=== PATIENT | female | born 1945 | race Caucasian/White ===

== ENCOUNTER 2020-11-19 17:21 | Inpatient (IN) | payer OTHER ==
[2020-11-19 18:55] LABS: Absolute Lymphocytes (CBC) 1.2 K/uL (0.7-4.9); Basophils % 0.7 % (0-1.3); Hematocrit 38.4 % (36.0-45.0); Lymphocytes % 23.3 % (15.3-44.8); MPV 8.7 fL (7.6-11.3); RBC Red Blood Cell Count 4.48 M/uL (3.86-4.86)
[2020-11-19] MEDS ORDERED: METHYLPREDNISOLONE 125 MG INJ ONE (19:04)
[2020-11-19 19:05] LABS: Protime INR 1.11
[2020-11-19] MEDS ORDERED: ALBUTEROL INHALER 60 PUFF/8 GM IH ONE (19:05)
--- NOTE | 2020-11-19 19:08 | RAD REPORT ---
EXAM DESCRIPTION: RAD - Chest Single View - 11/19/2020 6:26 pm CLINICAL HISTORY: SOB, COVID positive COMPARISON: None TECHNIQUE: AP portable chest image was obtained 11/19/2020 6:26 pm . FINDINGS: Lung volumes are low. Interstitial opacification is present most of which is low lung volu me affects. Patchy airspace opacification present in the mid and lower lung tabor bilaterally. Heart and vasculature are normal. No measurable pleural effusion and no pneumothorax. No acute bony abnorm ality seen. No acute aortic findings suspected. IMPRESSION: Mild bilateral COVID-19 pneumonia.
[2020-11-19 19:17] LABS: ALT/SGPT 43 U/L (12-78); AST/SGOT 56 U/L (15-37); Albumin 3.5 g/dL (3.4-5.0); Alkaline Phosphatase 64 U/L (45-117); BUN Blood Urea Nitrogen 11 mg/dL (7-18); Bicarbonate 26 mmol/L (21-32); Bilirubin Direct 0.2 mg/dL (0-0.2); Bilirubin Total 0.6 mg/dL (0.2-1.0); Ferritin 298.2 ng/mL (8-388); Glucose Level 142 mg/dL (74-106); Lipase 291 U/L (73-393); Potassium 3.8 mmol/L (3.5-5.1); Protein, Total 7.4 g/dL (6.4-8.2); Sodium Level 135 mmol/L (136-145); Troponin (Emerg Dept Use Only) < 0.02 ng/mL (0.0-0.045)
[2020-11-19 19:27] LABS: SARS-COV-2 RT PCR POSITIVE (NEGATIVE)
--- NOTE | 2020-11-19 19:51 | EDPHYS ---
Physician Documentation [facility] Name: Glenis Clark Age: 75 yrs Sex: Female : 1945 Arrival Date: 11/19/2020 Time: 17:22 Bed 7 Private MD: Srinivasa Reyes C ED Physician Franklin Espinosa HPI: 11/19 18:06 This 75 yrs old Female presents to ER via Ambulatory with complaints of pm1 Breathing Difficulty, COVID+. 18:06 The patient has shortness of breath at rest. pm1 18:06 Onset: The symptoms/episode began/occurred 8 day(s) ago. Duration: The symptoms are pm1 continuous, and are steadily getting worse. The patient's shortness of breath is aggravated by nothing, is alleviated by nothing. Associated signs and symptoms: Pertinent positives: productive cough, fever, Bodyaches, Pertinent negatives: vomiting, Diarrhea. Severity of symptoms: in the emergency department the symptoms are worse SOB of breath worse the past few day. The patient has not experienced similar symptoms in the past. The patient has not recently seen a physician, has not been tested for covid, exposure to friend who tested positive. Historical: - Allergies: 17:31 No Known Allergies; ca1 - PMHx: 17:31 Diabetes - NIDDM; Hypertension; High Cholesterol; ca1 - PSHx: 17:31 None; ca1 - Immunization history:: Pneumococcal vaccine is not up to date, Flu vaccine is not up to date. - Social history:: Smoking status: Patient denies any tobacco usage or history of. ROS: 18:06 Constitutional: Negative for fever, chills, and weight loss. pm1 18:06 Neck: Negative for injury, pain, and swelling, Cardiovascular: Negative for chest pain, pm1 palpitations, and edema. 18:06 Abdomen/GI: Negative for abdominal pain, nausea, vomiting, diarrhea, and constipation, Back: Negative for injury and pain, MS/Extremity: Negative for injury and deformity, Skin: Negative for injury, rash, and discoloration. 18:06 Neuro: Negative for headache, weakness, numbness, tingling, and seizure. 18:06 Respiratory: Positive for cough, dyspnea on exertion, shortness of breath. Exam: 18:06 Constitutional: This is a well developed, well nourished patient who is awake, alert, pm1 and in no acute distress. Head/Face: Normocephalic, atraumatic. Chest/axilla: Normal chest wall appearance and motion. Nontender with no deformity. No lesions are appreciated. 18:06 Back: No spinal tenderness. No costovertebral tenderness. Full range of motion. Skin: Warm, dry with normal turgor. Normal color with no rashes, no lesions, and no evidence of cellulitis. MS/ Extremity: Pulses equal, no cyanosis. Neurovascular intact. Full, normal range of motion. 18:06 Cardiovascular: Exam negative for acute changes, Rate: normal, Rhythm: regular, Pulses: no pulse deficits are appreciated. 18:06 Respiratory: the patient does not display signs of respiratory distress, Respirations: tachypnea, that is mild, Breath sounds: decreased breath sounds, are located in both bases. 18:06 Abdomen/GI: Exam negative for acute changes, Inspection: abdomen appears normal, Palpation: abdomen is soft and non-tender, in all quadrants. 18:06 Neuro: Exam negative for acute changes, Orientation: is normal, Mentation: is normal, Motor: is normal, moves all fours. Vital Signs: 17:26 BP 137 / 67; Pulse 82; Resp 22; Temp 97.6(TE); Pulse Ox 88% on R/A; Weight 78.47 kg; ca1 Height 5 ft. 9 in. (175.26 cm) (R); Pain 0/10; 17:31 Pulse Ox 90% on R/A; ca1 18:00 Pulse 78; Resp 24; Pulse Ox 94% on 2 lpm NC; jl7 19:00 BP 131 / 69; Pulse 82; Resp 22; Pulse Ox 98% on 2 lpm NC; rr5 19:49 BP 130 / 64; Pulse 84; Resp 17; Pulse Ox 94% on 2 lpm NC; jl7 21:00 BP 133 / 75; Pulse 80; Resp 20; Pulse Ox 98% on 2 lpm NC; rr5 17:26 Body Mass Index 25.55 (78.47 kg, 175.26 cm) ca1 MDM: 18:01 Patient medically screened. pm1 19:47 Data reviewed: vital signs. pm1 19:47 Data interpreted: Pulse oximetry: on 2L(s) per nasal canula, is 95 %. Interpretation: pm1 acceptable. 19:47 Counseling: I had a detailed discussion with the patient and/or guardian regarding: the pm1 historical points, exam findings, and any diagnostic results supporting the discharge/admit diagnosis, lab results, radiology results, the need for further work-up and treatment in the hospital. 11/19 18:01 Order name: Blood Culture Adult (2) pm11/19 18:01 Order name: BMP; Complete Time: 19:21 pm11/19 18:01 Order name: C-Reactive Protein; Complete Time: 19:21 pm11/19 18:01 Order name: CBC with Diff; Complete Time: 19:08 pm11/19 18:01 Order name: D-Dimer; Complete Time: 19:21 pm11/19 18:01 Order name: Ferritin; Complete Time: 19:21 pm11/19 18:01 Order name: Lactate; Complete Time: 19:21 pm11/19 18:01 Order name: LFT's; Complete Time: 19:21 pm11/19 18:01 Order name: Lipase; Complete Time: 19:21 pm11/19 18:01 Order name: Procalcitonin; Complete Time: 19:35 pm11/19 18:01 Order name: PT-INR; Complete Time: 19:21 pm11/19 18:01 Order name: Ptt, Activated; Complete Time: 19:21 pm11/19 18:01 Order name: Strep; Complete Time: 19:08 pm11/19 18:01 Order name: Troponin (emerg Dept Use Only); Complete Time: 19:21 pm11/19 18:01 Order name: CXR XRAY; Complete Time: 19:11 11/19 18:01 Order name: EKG; Complete Time: 18:03 pm11/19 18:01 Order name: Cardiac monitoring; Complete Time: 19:26 pm11/19 18:01 Order name: Droplet/Contact Precautions; Complete Time: 19:26 pm11/19 18:01 Order name: EKG - Nurse/Tech; Complete Time: 19:54 pm11/19 18:01 Order name: IV Start; Complete Time: 19:26 pm11/19 18:01 Order name: Labs collected and sent; Complete Time: 19:26 pm11/19 18:01 Order name: O2 Per Protocol; Complete Time: 19:26 pm1 11/19 18:02 Order name: Blood Culture EDMO 11/19 18:56 Order name: Throat Culture [facility] 11/19 19:28 Order name: COVID-19/FLU A+B; Complete Time: 19:35 EDMO 11/19 18:01 Order name: O2 Sat Monitoring; Complete Time: 18:48 pm1 Administered Medications: 18:50 Drug: SOLU-Medrol 125 mg Route: IVP; Site: right antecubital; rr5 19:50 Follow up: Response: No adverse reaction rr5 19:27 Not Given (Physician Discretion): Albuterol 5 mg Inhalation once pm1 19:30 Drug: Albuterol HFA Inhaler 2 puffs Route: Inhalation; rr5 20:30 Follow up: Response: No adverse reaction rr5 Disposition: 11/20 07:07 Co-signature as Attending Physician, Franklin Espinosa MD. rn Disposition: 11/19/20 19:50 Hospitalization ordered by Aidan Guardado for Inpatient Admission. Preliminary diagnosis are Pneumonia due to SARS-associated coronavirus, Hypoxia. - Bed requested for Telemetry/MedSurg (Inpatient). - Status is Inpatient Admission. rr5 - Condition is Stable. - Problem is new. - Symptoms have improved. Signatures: Dispatcher [employer] [facility] Franklin Espinosa MD MD rn Noel Palm, [employer]-C [employer]ERS-Cla1 Rosa Lester RN RN cg Tio Oliva, JEWELRY CASTING MODEL MAKER APPRENTICE JEWELRY CASTING MODEL MAKER APPRENTICE pm1 Vikram Koch, RN RN rr5 Irene Panchal RN RN ca1 Corrections: (The following items were deleted from the chart) 11/19 18:41 18:02 CORONAVIRUS+MR.LAB.BRZ ordered. EDMO EDMS 18:41 18:02 Influenza Screen (A \T\ B)+BA.LAB.BRZ ordered. [facility] EDMO 20:29 19:50 Hospitalization Ordered by Aidan Guardado MD for Inpatient Admission. cg Preliminary diagnosis is Pneumonia due to SARS-associated coronavirus; Hypoxia. Bed requested for Telemetry/MedSurg (Inpatient). Status is Inpatient Admission. Condition is Stable. Problem is new. Symptoms have improved. pm1 21:03 20:29 11/19/2020 19:50 Hospitalization Ordered by Aidan Guardado MD for Inpatient rr5 Admission. Preliminary diagnosis is Pneumonia due to SARS-associated coronavirus; Hypoxia. Bed requested for Telemetry/MedSurg (Inpatient). Status is Inpatient Admission. Condition is Stable. Problem is new. Symptoms have improved. cg
--- NOTE | 2020-11-19 19:51 | ER ---
Nurse's Notes [facility] Name: Glenis Clark Age: 75 yrs Sex: Female : 1945 Arrival Date: 11/19/2020 Time: 17:22 Bed 7 Private MD: Srinivasa Reyes C Diagnosis: Pneumonia due to SARS-associated coronavirus;Hypoxia Presentation: 11/19 17:26 Chief complaint: Patient states: Was never tested for Covid, but was exposed to 2 ca1 Friday ago. S/S started Friday11/11/2020. Reports cough, fever, fatigue, loss of appetite, muscle aches. O2 sat 84-85% for the past few days. SOB for the past few days and is getting worse. Coronavirus screen: Client denies travel out of the [place] in the last 14 days. congestion, cough unrelated to allergies, fatigue, fever, muscle pain, shortness of breath, Client presents with at least one sign or symptom that may indicate coronavirus-19. Standard/surgical mask placed on the client. Provider contacted for isolation considerations. Ebola Screen: Patient negative for fever greater than or equal to 101.5 degrees Fahrenheit, and additional compatible Ebola Virus Disease symptoms Patient denies exposure to infectious person. Patient denies travel to an Ebola-affected area in the 21 days before illness onset. No symptoms or risks identified at this time. Initial Sepsis Screen: Does the patient meet any 2 criteria? No. Patient's initial sepsis screen is negative. Does the patient have a suspected source of infection? No. Patient's initial sepsis screen is negative. Risk Assessment: Do you want to hurt yourself or someone else? Patient reports no desire to harm self or others. Onset of symptoms was November 19, 2020. 17:26 Method Of Arrival: Ambulatory ca1 17:26 Acuity: LAURY 2 ca1 Historical: - Allergies: 17:31 No Known Allergies; ca1 - PMHx: 17:31 Diabetes - NIDDM; Hypertension; High Cholesterol; ca1 - PSHx: 17:31 None; ca1 - Immunization history:: Pneumococcal vaccine is not up to date, Flu vaccine is not up to date. - Social history:: Smoking status: Patient denies any tobacco usage or history of. Screenin:00 Abuse screen: Denies threats or abuse. Denies injuries from another. Nutritional jl7 screening: No deficits noted. Tuberculosis screening: No symptoms or risk factors identified. Fall Risk IV access (20 points). Mental Status- Oriented to own ability (0 pts). Assessment: 18:00 General: Appears in no apparent distress. uncomfortable, Behavior is cooperative, jl7 anxious. Pain: Denies pain. Neuro: Level of Consciousness is awake, alert, obeys commands, Oriented to person, place, time, situation. Cardiovascular: Patient's skin is warm and dry. Rhythm is regular. Respiratory: Airway is patent Respiratory effort is even, unlabored, Respiratory pattern is symmetrical, tachypnea. Derm: Skin is pink, warm \T\ dry. 19:30 General: Appears in no apparent distress. comfortable, Behavior is calm, cooperative. rr5 Neuro: Level of Consciousness is awake, alert, obeys commands, Oriented to person, place, time. Cardiovascular: Capillary refill < 3 seconds Patient's skin is warm and dry. Respiratory: Reports shortness of breath Airway is patent Respiratory effort is even, unlabored, Respiratory pattern is regular, symmetrical. GI: No signs and/or symptoms were reported involving the gastrointestinal system. : No signs and/or symptoms were reported regarding the genitourinary system. Derm: Skin temperature is warm. Musculoskeletal: Capillary refill < 3 seconds. 20:00 Reassessment: Patient appears in no apparent distress at this time. Patient is alert, rr5 oriented x 3, equal unlabored respirations, skin warm/dry/pink. hospitalist at bedside. 21:00 Reassessment: Patient appears in no apparent distress at this time. Patient is alert, rr5 oriented x 3, equal unlabored respirations, skin warm/dry/pink. Vital Signs: 17:26 BP 137 / 67; Pulse 82; Resp 22; Temp 97.6(TE); Pulse Ox 88% on R/A; Weight 78.47 kg; ca1 Height 5 ft. 9 in. (175.26 cm) (R); Pain 0/10; 17:31 Pulse Ox 90% on R/A; ca1 18:00 Pulse 78; Resp 24; Pulse Ox 94% on 2 lpm NC; jl7 19:00 BP 131 / 69; Pulse 82; Resp 22; Pulse Ox 98% on 2 lpm NC; rr5 19:49 BP 130 / 64; Pulse 84; Resp 17; Pulse Ox 94% on 2 lpm NC; jl7 21:00 BP 133 / 75; Pulse 80; Resp 20; Pulse Ox 98% on 2 lpm NC; rr5 17:26 Body Mass Index 25.55 (78.47 kg, 175.26 cm) ca1 ED Course: 17:22 Patient arrived in ED. ag5 17:23 Srinivasa Reyes MD is Private Physician. ag5 17:30 Triage completed. ca1 17:31 Arm band placed on right wrist. ca1 17:56 Tio Oliva NP is PHCP. pm1 17:56 Franklin Espinosa MD is Attending Physician. pm1 18:00 Patient has correct armband on for positive identification. Placed in gown. Bed in low jl7 position. Call light in reach. Side rails up X2. phototypesetting equipment monitor on. Pulse ox on. NIBP on. Warm blanket given. 18:03 Maryellen Paniagua RN is Primary Nurse. jl7 18:20 COVID swab sent to lab. Flu and/or RSV swab sent to lab. Strep swab sent to lab. jl7 18:27 CXR XRAY In Process Unspecified. EDMS 18:35 Inserted saline lock: 20 gauge in right antecubital area, using aseptic technique. jl7 Blood collected. 18:35 Initial lab(s) drawn, by me, sent to lab. First set of blood cultures drawn by me. jl7 18:44 Second set of blood cultures drawn. jl7 19:48 Diaz Palm FNP-C is Hospitalizing Provider. pm1 19:50 Aidan Guardado MD is Hospitalizing Provider. pm1 20:32 No provider procedures requiring assistance completed. Patient admitted, IV remains in rr5 place. intact, No redness/swelling at site. Administered Medications: 18:50 Drug: SOLU-Medrol 125 mg Route: IVP; Site: right antecubital; rr5 19:50 Follow up: Response: No adverse reaction rr5 19:27 Not Given (Physician Discretion): Albuterol 5 mg Inhalation once pm1 19:30 Drug: Albuterol HFA Inhaler 2 puffs Route: Inhalation; rr5 20:30 Follow up: Response: No adverse reaction rr5 Outcome: 19:50 Decision to Hospitalize by Provider. pm1 20:58 Admitted to Tele accompanied by nurse, room 403, with oxygen, with chart, Report called rr5 to mahin COREY called by diaz hospitalist 20:58 Condition: stable 20:58 Instructed on the need for admit. 21:03 Patient left the ED. rr5 Signatures: Dispatcher [employer] EDMS Tio Oliva, [employer] PROGRAMS MANAGER pm1 Maryellen Paniagua RN RN jl7 Vikram Koch RN RN rr5 Irene Panchal RN RN ca1 Carole Blas 5
--- NOTE | 2020-11-19 20:18 | P.HP ---
Certification for Inpatient Patient admitted to: Inpatient With expected LOS: >2 Midnights Patient will require the following post-hospital care: None Practitioner: I am a practitioner with admitting privileges, knowledge of patient current condition, hospital course, and medical plan of care. Services: Services provided to patient in accordance with Admission requirements found in Title 42 Section 412.3 of the Code of Federal Regulations Patient History Date of Service: 11/19/20 Primary Care Provider: Dr. Reyes (covering tonight) Reason for admission: COVID Pneumonia History of Present Illness: 75-year-old female with history of diabetes mellitus type 2, hypertension, hyperlipidemia presents emergency department for anorexia and malaise weakness chills, shortness of breath patient reports being exposed to Temovate on 11/08/2020, started having symptoms on 11/11/2020. 1st test positive today in the emergency department. Lab significant for mildly elevated C-reactive protein 32.1 D-dimer 839. Chest x-ray with mild bilateral COVID pattern. Patient requiring nasal cannula at 3-4 L to maintain saturations greater than 90%. ED provider wishes to admit for further evaluation and management. - Past Medical/Surgical History Diabetic: Yes -: Diabetes mellitus type 2 -: Hypertension -: Hyperlipidemia -: Hysterectomy Psychosocial/ Personal History: Patient is retired, , lives alone. - Family History Father -: Heart disease - Social History Smoking Status: Never smoker Alcohol use: Yes CD- Drugs: No Caffeine use: Yes Place of Residence: Home Review of Systems 10-point ROS is otherwise unremarkable General: Weakness, Malaise, Other (Anorexia) Respiratory: Cough, Dry, Shortness of Breath, SOB with Excertion Physical Examination - Physical Exam General: Alert, In no apparent distress HEENT: Atraumatic, PERRLA, Other (Mucous membranes dry) Neck: Supple, 2+ carotid pulse no bruit, No LAD Respiratory: Clear to auscultation bilaterally, Normal air movement, Diminished (Bilaterally) Cardiovascular: Regular rate/rhythm, Normal S1 S2 Capillary refill: <2 Seconds Gastrointestinal: Normal bowel sounds, No tenderness Musculoskeletal: No tenderness Integumentary: No rashes Neurological: Normal speech, Normal strength at 5/5 x4 extr, Normal tone - Studies Laboratory Data (last 24 hrs) 11/19/20 18:35: PT 13.1 H, INR 1.11, APTT 29.0 11/19/20 18:35: WBC 5.0, Hgb 13.3, Hct 38.4, Plt Count 174 11/19/20 18:35: Sodium 135 L, Potassium 3.8, BUN 11, Creatinine 0.90, Glucose 142 H, Total Bilirubin 0.6, AST 56 H, ALT 43, Alkaline Phosphatase 64, Lipase 291 Microbiology Data (last 24 hrs): 11/19/20 18:18 Throat Group A Streptococcus Rapid Screen - Final Assessment and Plan - Plan Assessment COVID pneumonia with hypoxia Diabetes mellitus type 2 Hypertension Hyperlipidemia Plan COVID pneumonia with hypoxia: Continue with steroids, supplemental oxygen as needed, oral supplements. Trend CRP, ferritin, D-dimer levels. Titrate saturations greater than 90%. Pulmonology consult in place. Diabetes mellitus type 2: A.c. HS Accu-Cheks, sliding scale insulin therapy. ADA diet . Hypertension: Obtain and continue home medications as appropriate Hyperlipidemia: Obtain and continue home medications as appropriate Discharge Plan: Home Plan to discharge in: Greater than 2 days - Advance Directives Does patient have a Living Will: No Does patient have a Durable POA for Healthcare: No - Code Status/Comfort Care Code Status Assessed: Yes (Full code) Critical Care: No Time Spent Managing Pts Care (In Minutes): 55
[2020-11-19] MEDS: INSULIN -REGULAR HUMAN 50 UNIT/0.5 ML ML SQ SCH (21:00)
[2020-11-19] MEDS ORDERED: METHYLPREDNISOLONE 40 MG INJ IV SCH (21:00)
[2020-11-19 21:21] VITALS: BMI 25.4
[2020-11-19] MEDS: FAMOTIDINE 20 MG TAB PO SCH (21:41)
[2020-11-19] MEDS: ATORVASTATIN 40 MG TAB PO SCH (21:41)
[2020-11-19] MEDS: ASCORBIC ACID 500 MG TABLET PO SCH (21:41)
[2020-11-19 22:02] LABS: Urine Appearance CLEAR; Urine Bilirubin NEGATIVE (NEG); Urine Blood NEGATIVE (NEG); Urine Color YELLOW; Urine Glucose NEGATIVE (NEG); Urine Protein NEGATIVE (NEG); Urine Urobilinogen 0.2 mg/dL (0.2-1.0)
[2020-11-19 22:04] LABS: Urine Microscopic Reflex NO UMIC
[2020-11-20] MEDS: MELATONIN 5 MG TABLET PO PRN (01:11)
[2020-11-20 04:28] LABS: Absolute Lymphocytes (CBC) 0.7 K/uL (0.7-4.9); Basophils % 0.3 % (0-1.3); Lymphocytes % 24.1 % (15.3-44.8); MPV 8.9 fL (7.6-11.3); RBC Red Blood Cell Count 4.11 M/uL (3.86-4.86)
[2020-11-20 04:54] LABS: C-Reactive Protein 26.4 mg/L (<3.00); Ferritin 283.9 ng/mL (8-388); Magnesium 2.5 mg/dL (1.8-2.4)
--- NOTE | 2020-11-20 07:31 | EKG ---
Test Date: 2020-11-19 Test Time: 19:36:47 Corporate Counsel: RR MEASUREMENT RESULTS: Intervals: Rate: 79 OR: 158 QRSD: 96 QT: 360 QTc: 412 Spiro: P: 23 OR: 158 QRS: 69 T: 43 INTERPRETIVE STATEMENTS: Normal sinus rhythm Normal ECG No previous ECG available for comparison Electronically Signed On 11-20-20 07:29:59 EXTRACTOR PLANT OPERATOR by Wes Bender
[2020-11-20] MEDS ORDERED: GLUCAGON 1 MG/VIAL IM PRN (07:52)
[2020-11-20] MEDS ORDERED: D50W 25 GM/50 ML SYRINGE IV PRN (07:52)
[2020-11-20] MEDS: INSULIN -REGULAR HUMAN 50 UNIT/0.5 ML ML SQ SCH ×4 (08:00→21:51)
[2020-11-20] MEDS: FAMOTIDINE 20 MG TAB PO SCH ×2 (08:57→21:50)
[2020-11-20] MEDS: THIAMINE HCL 100 MG TABLET PO SCH (08:57)
[2020-11-20] MEDS: ZINC SULFATE 220 MG CAP PO SCH (08:58)
[2020-11-20] MEDS: METFORMIN HCL 500 MG TAB PO SCH ×2 (08:58→16:08)
[2020-11-20] MEDS: ASCORBIC ACID 500 MG TABLET PO SCH ×4 (08:58→21:51)
[2020-11-20] MEDS: ASPIRIN EC 81 MG TAB PO SCH (08:58)
[2020-11-20] MEDS: VITAMIN D 1000 UNIT TAB PO SCH (08:58)
[2020-11-20] MEDS: INSULIN GLARGINE 100 UNITS/ML SQ SCH (08:58)
[2020-11-20] MEDS: METOPROLOL TAR 25 MG TAB PO SCH ×2 (08:59→21:51)
[2020-11-20] MEDS ORDERED: PNEUMOCOCCAL VACCINE 0.5 ML IMVAC ONE (09:00)
[2020-11-20] MEDS ORDERED: ENOXAPARIN 40 MG/0.4 ML SQ SCH (09:00)
[2020-11-20] MEDS: METHYLPREDNISOLONE 125 MG INJ IV SCH ×2 (09:00→16:08)
[2020-11-20] MEDS ORDERED: INFLUENZA VACCINE (for 3y+) 0.5 ML DOSE IMVAC ONE (09:00)
[2020-11-20] MEDS: ENOXAPARIN 80 MG/0.8 ML SQ SCH ×2 (09:00→21:50)
[2020-11-20] MEDS: IVERMECTIN 3 MG TABLET PO SCH (09:47)
[2020-11-20] MEDS: GLUCERNA SHAKE 237 ML CAN PO PRN (13:07)
--- NOTE | 2020-11-20 16:41 | P.CNS ---
Date of Consult: 11/20/20 Primary Care Provider: Dr. Reyes (covering [facility]) Chief Complaint: COVID Pneumonia History of Present Illness: Patient is 75 years of age multiple medical problems admitted from the emergency department with worsening shortness of breath she tested positive on November 11 ended up here in the emergency room she is currently doing much better on 3-4 L of nasal cannula oxygen very comfortable Allergies No Known Allergies Allergy (Verified 11/19/20 21:16) Home Medications: Atorvastatin Calcium [Lipitor] 1 tab PO BEDTIME 11/20/20 Clopidogrel Bisulfate [Plavix*] 1 tab PO DAILY 11/20/20 Metformin ER [Glucophage ER*] 1,000 mg PO SEECOM 11/20/20 Metoprolol Tartrate [Lopressor*] 1 tab PO BID 11/20/20 Temazepam [Restoril*] 1 tab PO BEDTIME 11/20/20 - Past Medical/Surgical History Diabetic: Yes -: Diabetes mellitus type 2 -: Hypertension -: Hyperlipidemia -: Hysterectomy Psychosocial/ Personal History: Patient is retired, , lives alone. - Family History Father Medical History: Heart disease - Social History Alcohol use: Yes CD- Drugs: No Caffeine use: Yes Place of Residence: Home Review of Systems General: Weakness Respiratory: Cough, Shortness of Breath Physical Examination Temp Pulse Resp BP Pulse Ox 98.1 F 64 17 110/58 L 93 11/20/20 16:00 11/20/20 16:00 11/20/20 16:00 11/20/20 16:00 11/20/20 16:00 General: Alert, In no apparent distress, Oriented x3 Laboratory Data (last 24 hrs) 11/19/20 18:35: PT 13.1 H, INR 1.11, APTT 29.0 11/19/20 18:35: WBC 5.0, Hgb 13.3, Hct 38.4, Plt Count 174 11/19/20 18:35: Sodium 135 L, Potassium 3.8, BUN 11, Creatinine 0.90, Glucose 142 H, Total Bilirubin 0.6, AST 56 H, ALT 43, Alkaline Phosphatase 64, Lipase 291 - Problems (1) Pneumonia due to 2019 novel coronavirus Current Visit: Yes Status: Acute Plan: Patient is 75 years of age multiple medical problems admitted with pneumonia due to augustin virus minimal changes on the chest x-ray CRP is mildly elevated ferritin level is normal oxygenation satisfactory plan to discharge tomorrow on prednisone and ivermectin labs reviewed
[2020-11-20] MEDS ORDERED: D50W 25 GM/50 ML VIAL IV PRN (19:00)
[2020-11-20] MEDS: ACETAMINOPHEN 500 MG TAB PO PRN (21:51)
[2020-11-20] MEDS: ATORVASTATIN 40 MG TAB PO SCH (21:51)
[2020-11-20] MEDS: TEMAZEPAM 15 MG CAP PO PRN (22:04)
[2020-11-21] MEDS: METHYLPREDNISOLONE 125 MG INJ IV SCH ×3 (00:48→16:09)
[2020-11-21 04:04] LABS: Absolute Lymphocytes (CBC) 1.4 K/uL (0.7-4.9); Basophils % 0.4 % (0-1.3); Hematocrit 36.6 % (36.0-45.0); Lymphocytes % 20.1 % (15.3-44.8); RBC Red Blood Cell Count 4.22 M/uL (3.86-4.86)
[2020-11-21 04:17] LABS: C-Reactive Protein 12.9 mg/L (<3.00); Magnesium 2.7 mg/dL (1.8-2.4); Potassium 4.1 mmol/L (3.5-5.1)
[2020-11-21] MEDS: METFORMIN HCL 500 MG TAB PO SCH ×2 (08:03→16:09)
[2020-11-21] MEDS: ZINC SULFATE 220 MG CAP PO SCH (08:03)
[2020-11-21] MEDS: ASCORBIC ACID 500 MG TABLET PO SCH ×4 (08:04→22:11)
[2020-11-21] MEDS: VITAMIN D 1000 UNIT TAB PO SCH (08:04)
[2020-11-21] MEDS: ASPIRIN EC 81 MG TAB PO SCH (08:04)
[2020-11-21] MEDS: METOPROLOL TAR 25 MG TAB PO SCH ×2 (08:04→22:11)
[2020-11-21] MEDS: ENOXAPARIN 80 MG/0.8 ML SQ SCH ×2 (08:10→22:12)
[2020-11-21] MEDS: INSULIN -REGULAR HUMAN 50 UNIT/0.5 ML ML SQ SCH ×4 (08:11→22:12)
[2020-11-21] MEDS: INSULIN GLARGINE 100 UNITS/ML SQ SCH (08:11)
[2020-11-21] MEDS: FAMOTIDINE 20 MG TAB PO SCH ×2 (08:28→22:11)
[2020-11-21] MEDS: THIAMINE HCL 100 MG TABLET PO SCH (08:57)
--- NOTE | 2020-11-21 09:06 | PN ---
Date of Progress Note: 11/20/2020 Subjective: The patient was seen this morning for followup. No new complaints or problems reported by patient. She was admitted last night after she came into emergency room and this morning when I s aw her, she was lying in bed, not in distress. She had her nasal cannula oxygen on. Objective: Vital Signs: Reviewed. HEENT: Unremarkable. Lungs: Clear to auscultation. Heart: Sounds normal. Abdomen: Soft. Bowel sounds normal. No guarding, rigidity, tenderness, or distention. Extremities: No leg edema. Laboratory Data: White count 3.1, hemoglobin 12.6, platelets 160. Sodium 136, potassium 4, chloride 105, bicarb 24, BUN 13, creatinine 0.75, glucose 247. CRP 26.4, ferritin 280. Impression: 1.COVID-19 infection. 2.COVID-19 pneumonia. 3.Acute respiratory failure with hypoxia. 4.Insomnia. Plan: We will go ahead and continue home medications per order. Follow up with Dr. Guardado from [facility]. Continue steroid, oxygen treatment, and I will see her tomorrow for followup. Details were discussed with Dr. Guardado. Plan of treatment discussed with the patient. HUBER/MODL Voice ID: [id number] Report ID: [id number]
[2020-11-21] MEDS: GLUCERNA SHAKE 237 ML CAN PO PRN (14:26)
[2020-11-21] MEDS: ONDANSETRON 4 MG/2 ML VIAL IV PRN (15:35)
[2020-11-21] MEDS: ATORVASTATIN 40 MG TAB PO SCH (22:11)
[2020-11-21] MEDS: TEMAZEPAM 15 MG CAP PO PRN (22:11)
[2020-11-22] MEDS: METHYLPREDNISOLONE 125 MG INJ IV SCH ×3 (00:19→17:27)
[2020-11-22 04:20] LABS: C-Reactive Protein 5.57 mg/L (<3.00); Ferritin 251.8 ng/mL (8-388)
--- NOTE | 2020-11-22 07:35 | PN ---
Date of Progress Note: 11/21/2020 Subjective: The patient was seen for followup in the morning. She was lying in bed, not in distress , on oxygen, not using any accessory muscles of respiration. Denies any new complaints. Objective: Vital Signs: Reviewed. HEENT: Unremarkable. Lungs: Clear to auscultation. Heart: Sounds normal. Abdomen: Soft. Bowel sounds normal. No guarding, rigidity, tenderness, or distention. Extremities: No leg edema. Laboratory Data: White count 7, hemoglobin 12.5, platelets 170. Sodium 136, potassium 4.1, chloride 103, bicarb 25, BUN 23, creatinine 0.83, glucose 213, ferritin 304, CRP 12.9. Yesterday, CRP was 26 .4. Impression: 1.COVID-19 infection. 2.COVID-19 pneumonia. 3.Acute respiratory failure with hypoxia. Plan: We will go ahead and continue current medication, oxygen, IV steroid will be continued. We wi ll continue to follow with Dr. Guardado. Ivermectin was ordered and the patient will receive it as p er instruction. I will see her tomorrow for followup. Continue anticoagulation therapy per order. HUBER/MODL Voice ID: [id number] Report ID: [id number]
[2020-11-22] MEDS: ENOXAPARIN 80 MG/0.8 ML SQ SCH ×2 (09:00→21:00)
[2020-11-22] MEDS: VITAMIN D 1000 UNIT TAB PO SCH (09:10)
[2020-11-22] MEDS: IVERMECTIN 3 MG TABLET PO SCH (09:10)
[2020-11-22] MEDS: THIAMINE HCL 100 MG TABLET PO SCH (09:10)
[2020-11-22] MEDS: ASPIRIN EC 81 MG TAB PO SCH (09:10)
[2020-11-22] MEDS: FAMOTIDINE 20 MG TAB PO SCH ×2 (09:11→21:06)
[2020-11-22] MEDS: ZINC SULFATE 220 MG CAP PO SCH (09:12)
[2020-11-22] MEDS: METOPROLOL TAR 25 MG TAB PO SCH ×2 (09:13→21:07)
[2020-11-22] MEDS: METFORMIN HCL 500 MG TAB PO SCH ×2 (09:13→17:28)
[2020-11-22] MEDS: ASCORBIC ACID 500 MG TABLET PO SCH ×4 (09:13→21:07)
[2020-11-22] MEDS: INSULIN -REGULAR HUMAN 50 UNIT/0.5 ML ML SQ SCH ×4 (09:14→21:08)
[2020-11-22] MEDS: INSULIN GLARGINE 100 UNITS/ML SQ SCH (09:15)
--- NOTE | 2020-11-22 14:47 | RAD REPORT ---
EXAM DESCRIPTION: Charan Single View11/22/2020 2:38 pm CLINICAL HISTORY: Chest pain COMPARISON: November 19, 2020 FINDINGS: Mild worsening in moderate left and no significant change in right pulmonary opacities Heart is normal size IMPRESSION: Mild worsening in left and no significant change in right pulmonary opacities lot
[2020-11-22] MEDS: ONDANSETRON 4 MG/2 ML VIAL IV PRN (19:49)
[2020-11-22] MEDS: TEMAZEPAM 15 MG CAP PO PRN (21:07)
[2020-11-22] MEDS: ATORVASTATIN 40 MG TAB PO SCH (21:07)
[2020-11-23] MEDS: METHYLPREDNISOLONE 125 MG INJ IV SCH ×3 (01:54→17:38)
[2020-11-23] MEDS: ACETAMINOPHEN 500 MG TAB PO PRN ×2 (03:50→12:37)
--- NOTE | 2020-11-23 06:32 | PN ---
Date of Progress Note: 11/22/2020 Subjective: The patient was seen this morning for followup. This morning she reported that she was not feeling quite as good as yesterday morning. Objective: Vital Signs: Reviewed. HEENT: Unremarkable. Lungs: Clear to auscultation. Heart: Sounds normal. Abdomen: Soft. Bowel sounds normal. No guarding, rigidity, tenderness, or distention. Extremities: No leg edema. Impression: 1.COVID-19 infection. 2.COVID-19 pneumonia. 3.Acute respiratory failure with hypoxia. Plan: We will continue current steroid therapy per order. The patient has received ivermectin IV pe r order. I did discuss details with Dr. Guardado regarding remdesivir treatment and he will initiate that as he agrees with that. I will see her tomorrow for followup. Continue current oxygen replace ment therapy. HUBER/MODL Voice ID: [id number] Report ID: [id number]
[2020-11-23 07:52] LABS: Ferritin 237.7 ng/mL (8-388); Potassium 4.5 mmol/L (3.5-5.1)
[2020-11-23 08:02] LABS: Albumin 2.8 g/dL (3.4-5.0); Bilirubin Direct 0.2 mg/dL (0-0.2); Bilirubin Total 0.7 mg/dL (0.2-1.0); Protein, Total 6.4 g/dL (6.4-8.2)
[2020-11-23] MEDS ORDERED: Remdesivir 200 MG in NA CHLORIDE 0.9% 250 ML IV ONE (09:00)
[2020-11-23] MEDS: THIAMINE HCL 100 MG TABLET PO SCH (09:16)
[2020-11-23] MEDS: ZINC SULFATE 220 MG CAP PO SCH (09:16)
[2020-11-23] MEDS: ENOXAPARIN 80 MG/0.8 ML SQ SCH ×2 (09:16→20:37)
[2020-11-23] MEDS: FAMOTIDINE 20 MG TAB PO SCH ×2 (09:16→20:36)
[2020-11-23] MEDS: VITAMIN D 1000 UNIT TAB PO SCH (09:16)
[2020-11-23] MEDS: ASPIRIN EC 81 MG TAB PO SCH (09:17)
[2020-11-23] MEDS: ASCORBIC ACID 500 MG TABLET PO SCH ×4 (09:17→20:37)
[2020-11-23] MEDS: METOPROLOL TAR 25 MG TAB PO SCH ×2 (09:17→20:40)
[2020-11-23] MEDS: METFORMIN HCL 500 MG TAB PO SCH ×2 (09:17→17:38)
[2020-11-23] MEDS: INSULIN GLARGINE 100 UNITS/ML SQ SCH (09:17)
[2020-11-23] MEDS: INSULIN -REGULAR HUMAN 50 UNIT/0.5 ML ML SQ SCH ×4 (09:18→20:42)
[2020-11-23] MEDS ORDERED: FUROSEMIDE 20 MG/ 2ML VIAL IV ONE (13:18)
--- NOTE | 2020-11-23 13:19 | P.PN ---
Subjective Date of Service: 11/23/20 Primary Care Provider: Dr. Reyes (covering tonight) Chief Complaint: COVID Pneumonia Patient is not feeling good feeling weak short of breath as a hypoxic Review of Systems General: Weakness Respiratory: Shortness of Breath Physical Examination - Vital Signs Temperature: 97.0 F Blood Pressure: 136/63 Pulse: 63 Respirations: 16 Pulse Ox (%): 89 Assessment & Plan - Problems (Diagnosis) (1) Pneumonia due to 2019 novel coronavirus Current Visit: Yes Status: Acute Plan: Respiratory failure from augustin virus she still continues to feel very weak and hypoxic continue with present treatment she has had some Rmdsmir an and ivermectin patient is on the recommended doses of steroid continue weaning down on oxygen 1 dose of Lasix
[2020-11-23] MEDS: ATORVASTATIN 40 MG TAB PO SCH (20:37)
[2020-11-23] MEDS: MELATONIN 5 MG TABLET PO PRN (20:37)
[2020-11-23] MEDS: TEMAZEPAM 15 MG CAP PO PRN (22:27)
[2020-11-24] MEDS: METHYLPREDNISOLONE 125 MG INJ IV SCH ×3 (00:46→17:08)
[2020-11-24 05:03] LABS: Albumin 2.8 g/dL (3.4-5.0); Bilirubin Direct 0.2 mg/dL (0-0.2); Bilirubin Total 0.7 mg/dL (0.2-1.0)
[2020-11-24] MEDS: INSULIN -REGULAR HUMAN 50 UNIT/0.5 ML ML SQ SCH ×4 (09:13→20:53)
[2020-11-24] MEDS: VITAMIN D 1000 UNIT TAB PO SCH (09:14)
[2020-11-24] MEDS: INSULIN GLARGINE 100 UNITS/ML SQ SCH (09:14)
[2020-11-24] MEDS: ASPIRIN EC 81 MG TAB PO SCH (09:15)
[2020-11-24] MEDS: THIAMINE HCL 100 MG TABLET PO SCH (09:15)
[2020-11-24] MEDS: METOPROLOL TAR 25 MG TAB PO SCH ×2 (09:15→21:00)
[2020-11-24] MEDS: ASCORBIC ACID 500 MG TABLET PO SCH ×4 (09:15→20:12)
[2020-11-24] MEDS: FAMOTIDINE 20 MG TAB PO SCH ×2 (09:15→20:12)
[2020-11-24] MEDS: ENOXAPARIN 80 MG/0.8 ML SQ SCH ×2 (09:16→20:13)
[2020-11-24] MEDS: Remdesivir 100 MG in NA CHLORIDE 0.9% 250 ML IV SCH (09:16)
[2020-11-24] MEDS: ZINC SULFATE 220 MG CAP PO SCH (09:16)
[2020-11-24] MEDS: METFORMIN HCL 500 MG TAB PO SCH ×2 (09:16→17:07)
--- NOTE | 2020-11-24 18:22 | PN ---
Date of Progress Note: 11/24/2020 Subjective: The patient was seen this morning for followup. She was seen in person. She was sittin g in chair, not in any distress, on nasal cannula oxygen. She did not sleep well at all last night a nd she feels really weak and tired today, and does not feel good at all as she describes. Objective: Vital Signs: Reviewed. HEENT: Unremarkable. Lungs: Clear to auscultation. Basal rales. Heart: Sounds normal. Abdomen: Soft. Bowel sounds normal. No guarding, rigidity, tenderness, or distention. Extremities: No leg edema. Laboratory Data: Liver function tests unremarkable. Albumin level 2.8. Impression: 1.COVID-19 infection. 2.COVID-19 pneumonia. 3.Acute respiratory failure with hypoxia. 4.Malnutrition, mild. Plan: We will go ahead and continue current medications. The patient was encouraged to use nutritio nal supplement as her appetite and oral intake of food is not moved good. We will continue IV collin d. Continue current diabetes management and we will also continue to follow with Dr. Guardado. Dr. Guardado has made arrangements for home oxygen and we did discuss details. Possible discharge to go home tomorrow depending on her condition . HUBER/MODL Voice ID: [id number] Report ID: [id number]
--- NOTE | 2020-11-24 18:58 | PN ---
Date of Progress Note: 11/23/2020 Subjective: The patient was seen this morning for followup. No new complaints or problems reported by her. She was evaluated via tele visit that included audio and video component. Vital signs revie fri. Laboratory Data: Sodium 137, potassium 4.5, chloride 105, bicarb 27, BUN 20, creatinine 0.82, glucos e 263. Liver function tests unremarkable. Ferritin level 237. CRP 3. Impression: 1.COVID-19 infection. 2.COVID-19 pneumonia. 3.Acute respiratory failure with hypoxia. 4.Type 2 diabetes mellitus. Plan: We will go ahead and continue current medication. Continue current medication, IV steroid, ox ygen, anticoagulation therapy, and we will continue to follow with Dr. Guardado. HUBER/MODL Voice ID: [id number] Report ID: [id number]
[2020-11-24] MEDS: ATORVASTATIN 40 MG TAB PO SCH (20:12)
[2020-11-24] MEDS: ENSURE HIGH PROTEIN 237 ML CAN PO SCH (20:13)
[2020-11-24] MEDS: TEMAZEPAM 15 MG CAP PO PRN (21:59)
[2020-11-25] MEDS: METHYLPREDNISOLONE 125 MG INJ IV SCH ×3 (00:26→16:30)
[2020-11-25 04:21] LABS: Albumin 2.8 g/dL (3.4-5.0); Bilirubin Direct 0.2 mg/dL (0-0.2); Bilirubin Total 0.7 mg/dL (0.2-1.0); Protein, Total 6.5 g/dL (6.4-8.2)
[2020-11-25] MEDS: INSULIN GLARGINE 100 UNITS/ML SQ SCH (09:03)
[2020-11-25] MEDS: INSULIN -REGULAR HUMAN 50 UNIT/0.5 ML ML SQ SCH ×5 (09:03→22:00)
[2020-11-25] MEDS: ASPIRIN EC 81 MG TAB PO SCH (09:04)
[2020-11-25] MEDS: FAMOTIDINE 20 MG TAB PO SCH ×2 (09:04→21:44)
[2020-11-25] MEDS: METFORMIN HCL 500 MG TAB PO SCH ×2 (09:04→16:38)
[2020-11-25] MEDS: METOPROLOL TAR 25 MG TAB PO SCH ×2 (09:04→21:43)
[2020-11-25] MEDS: ENOXAPARIN 80 MG/0.8 ML SQ SCH ×2 (09:04→21:42)
[2020-11-25] MEDS: VITAMIN D 1000 UNIT TAB PO SCH (09:05)
[2020-11-25] MEDS: ENSURE HIGH PROTEIN 237 ML CAN PO SCH ×2 (09:05→21:00)
[2020-11-25] MEDS: ASCORBIC ACID 500 MG TABLET PO SCH ×4 (09:05→21:44)
[2020-11-25] MEDS: Remdesivir 100 MG in NA CHLORIDE 0.9% 250 ML IV SCH (09:06)
[2020-11-25] MEDS: ZINC SULFATE 220 MG CAP PO SCH (10:11)
[2020-11-25] MEDS: THIAMINE HCL 100 MG TABLET PO SCH (10:11)
--- NOTE | 2020-11-25 11:05 | PN ---
Date of Progress Note: 11/25/2020 Subjective: The patient was seen for followup this morning. She slept better last night and feels b alma rosa this morning compared to yesterday. She still feels weak and tired, but overall better today t hess yesterday. Objective: Vital Signs: Reviewed. HEENT: Unremarkable. Lungs: Clear to auscultation. Heart: Sounds normal. Abdomen: Soft. Bowel sounds normal. No guarding, rigidity, tenderness, or distention. Extremities: No leg edema. Laboratory Data: Liver function tests unremarkable. Glucose 292, albumin 2.8. Impression: 1.COVID-19 infection. 2.COVID-19 pneumonia. 3.Acute respiratory failure with hypoxia. 4.Type 2 diabetes mellitus. Plan: We will continue current medication. Continue Lovenox as her anticoagulant medication. Jose Daniel nue IV steroid, oxygen. Her oxygen arrangements for home use have been completed and when I saw her while she was talking to me, she was using her nasal cannula oxygen and maintaining oxygen saturation between 90% to 91%. My plan is to continue current treatment in the hospital. We will give her thi rd dose of ivermectin today and I will evaluate her tomorrow morning with possibility of discharge tomor row to go home. HUBER/MODL Voice ID: [id number] Report ID: [id number]
--- NOTE | 2020-11-25 12:18 | RAD REPORT ---
EXAM DESCRIPTION: RAD - Chest Single View - 11/25/2020 10:31 am CLINICAL HISTORY: covid pneumonia COMPARISON: Portable November 22 TECHNIQUE: AP portable chest image was obtained 11/25/2020 10:31 am . FINDINGS: Bilateral pneumonia changes are present not substantially different from the comparison. H eart and vasculature are normal. No measurable pleural effusion and no pneumothorax. No acute bony ab normality seen. No acute aortic findings suspected. IMPRESSION: Stable bilateral pneumonia pattern since November 22.
[2020-11-25] MEDS ORDERED: IVERMECTIN 3 MG TABLET PO ONE (13:00)
[2020-11-25] MEDS: ATORVASTATIN 40 MG TAB PO SCH (21:43)
[2020-11-25] MEDS: TEMAZEPAM 15 MG CAP PO PRN (21:49)
[2020-11-26] MEDS: METHYLPREDNISOLONE 125 MG INJ IV SCH ×2 (00:50→08:24)
[2020-11-26] MEDS: ACETAMINOPHEN 500 MG TAB PO PRN (00:57)
[2020-11-26 02:38] VITALS: O2SAT 94
[2020-11-26 05:18] LABS: Absolute Lymphocytes (CBC) 0.7 K/uL (0.7-4.9); Basophils % 0.2 % (0-1.3); Hematocrit 35.2 % (36.0-45.0); Lymphocytes % 4.9 % (15.3-44.8); MPV 8.4 fL (7.6-11.3); RBC Red Blood Cell Count 4.08 M/uL (3.86-4.86)
[2020-11-26 05:59] LABS: ALT/SGPT 45 U/L (12-78); AST/SGOT 24 U/L (15-37); Albumin 2.5 g/dL (3.4-5.0); Alkaline Phosphatase 50 U/L (45-117); BUN Blood Urea Nitrogen 25 mg/dL (7-18); Bicarbonate 25 mmol/L (21-32); Bilirubin Direct 0.1 mg/dL (0-0.2); Bilirubin Total 0.6 mg/dL (0.2-1.0); Ferritin 152.5 ng/mL (8-388); Glucose Level 275 mg/dL (74-106); Magnesium 2.2 mg/dL (1.8-2.4); Potassium 4.6 mmol/L (3.5-5.1); Protein, Total 5.6 g/dL (6.4-8.2); Sodium Level 135 mmol/L (136-145)
[2020-11-26 06:01] LABS: C-Reactive Protein < 2.90 mg/L (<3.00)
[2020-11-26 07:48] LABS: Blood Morphology Comment NOT SEEN (NOT SEEN); Platelet Estimate ADEQ
[2020-11-26] MEDS: METFORMIN HCL 500 MG TAB PO SCH (08:23)
[2020-11-26] MEDS: THIAMINE HCL 100 MG TABLET PO SCH (08:23)
[2020-11-26] MEDS: FAMOTIDINE 20 MG TAB PO SCH (08:23)
[2020-11-26] MEDS: INSULIN -REGULAR HUMAN 50 UNIT/0.5 ML ML SQ SCH ×2 (08:23→12:19)
[2020-11-26] MEDS: VITAMIN D 1000 UNIT TAB PO SCH (08:24)
[2020-11-26] MEDS: ASPIRIN EC 81 MG TAB PO SCH (08:24)
[2020-11-26] MEDS: METOPROLOL TAR 25 MG TAB PO SCH (08:24)
[2020-11-26] MEDS: ASCORBIC ACID 500 MG TABLET PO SCH ×2 (08:24→12:19)
[2020-11-26] MEDS: ZINC SULFATE 220 MG CAP PO SCH (08:24)
[2020-11-26] MEDS: INSULIN GLARGINE 100 UNITS/ML SQ SCH (08:24)
[2020-11-26] MEDS: ENOXAPARIN 80 MG/0.8 ML SQ SCH (08:25)
[2020-11-26] MEDS: ENSURE HIGH PROTEIN 237 ML CAN PO SCH (08:25)
[2020-11-26] MEDS: Remdesivir 100 MG in NA CHLORIDE 0.9% 250 ML IV SCH (10:08)
--- NOTE | 2020-11-26 12:56 | DS ---
Date of Discharge: 11/26/2020 History: The patient was seen this morning for followup. No new complaints or problems reported by her except she was feeling really depressed being in the hospital. Says that she is ready to go home . Medically, she is stable for discharge today. She is maintaining adequate oxygenation on 4 L nasa l cannula. Her oxygen saturation has been around 93% to 94%. She is not in any respiratory distress . Physical Examination: Vital Signs: Reviewed. HEENT: Unremarkable. Lungs: Clear to auscultation. Heart: Sounds normal. Abdomen: Soft, bowel sounds normal. No guarding, rigidity, tenderness, or distention. Extremities: No leg edema. Laboratory Data: Upon admission, white count was 5, hemoglobin 13.3, platelets 174, last white count today 13.7, hemoglobin 12.1, platelets 301. Upon admission; D-dimer at 830 but it steadily came basim n. Last D-dimer on 11/22/2020 was 277. Her last chemistry today; sodium 131, potassium 4.6, chlorid e 104, bicarb 25, BUN 25, creatinine 0.61, glucose 275. Hemoglobin A1c 7.1, ferritin 152. CRP less than 2.9. Liver function tests normal. Highest CRP level was 32.10 when she was admitted. Discharge Diagnoses: 1.COVID-19 infection. 2.COVID-19 pneumonia. 3.Acute respiratory failure with hypoxia. 4.Type 2 diabetes mellitus. 5.Insomnia. 6.Hypertension. 7.Hyperlipidemia. 8.Coronary artery disease. 9.Depression. Discharge Instructions: 1.Continue all prior home medications except do not take clopidogrel while taking Eliquis for 1 ernestine h and once Eliquis therapy completed, then to restart clopidogrel and this was personally explained t o the patient by me this morning when I saw her. 2.Use oxygen at 4 L/minute per nasal cannula all the time. 3.Follow up at my office next week via tele visit. Call office for appointment. 4.Take following new medications and prescriptions will be sent to her pharmacy from my office. a.Prednisone 10 mg. The patient to take 2 tablets by mouth 2 times a day for 1 week, 2 tablets by m outh daily for 1 week, then 1 tablet by mouth daily for 1 week, then 1/2 tablet by mouth daily for 1 week, then stop. Take this medication with food. b.Eliquis 5 mg 2 times a day for 1 month. c.Januvia 100 mg p.o. daily with breakfast for 1 month. d.Sertraline 25 mg 1 tablet by mouth daily with breakfast. 5.Take pvcp-qra-blnypqs medications as below: a.Vitamin C 500 mg to 1000 mg daily. b.Vitamin D3 2000 units daily. c.Zinc 50 to 100 mg. Hospital Course: This is a 75-year-old pleasant female patient who was admitted to hospital with COV ID-19 infection and pneumonia as a result of that and acute respiratory failure with hypoxia. Please see H and P for more details. The patient was admitted to medical floor. She required nasal cannul a oxygen and IV steroid was started. She also received remdesivir. She also received ivermectin tot al of 3 doses. Overall, her condition has improved. With isolation in the hospital, she has started to have some depression problem and she is willing to take some medications for that. The patient w as discharged to go home in stable condition today with above-mentioned medications and instructions. HUBER/MODL Voice ID: [id number] Report ID: [id number]
[2020-11-26 13:30] VITALS: BP 160/75; TEMP 97.5
== END 2020-11-26 13:35 | disposition home or self-care (01) | DRG 177 ==
LOC: ER 17:21 → ERHOLD 20:20 → 4TH 20:56
PROVIDERS: ADMIT Internal Medicine Sleep Medicine; ATTEND Internal Medicine
PROC: XW033E5 Introduction of Remdesivir Anti-infective into Peripheral Vein, Percutaneous Approach, New Technology Group 5 (ICD-10-PCS; principal; 2020-11-23)
DX: U07.1 COVID-19 (principal); J12.82 Pneumonia due to coronavirus disease 2019; J96.01 Acute respiratory failure with hypoxia; E44.1 Mild protein-calorie malnutrition; E11.9 Type 2 diabetes mellitus without complications; G47.00 Insomnia, unspecified; I10 Essential (primary) hypertension; F32.9 Major depressive disorder, single episode, unspecified; I25.10 Atherosclerotic heart disease of native coronary artery without angina pectoris; E78.5 Hyperlipidemia, unspecified; Z68.25 Body mass index [BMI] 25.0-25.9, adult; Z90.710 Acquired absence of both cervix and uterus; Z60.2 Problems related to living alone; Z79.84 Long term (current) use of oral hypoglycemic drugs; Z79.02 Long term (current) use of antithrombotics/antiplatelets; Z79.899 Other long term (current) drug therapy
CPT/HCPCS: 0240U; 36415; 71045; 80048; 80053; 80076; 81003; 81015; 82728; 82947; 83036; 83605; 83690; 83735; 83880; 84145; 84484; 85025; 85379; 85610; 85730; 86140; 87040; 87070; 87077; 87081; 87086; 87088; 87186; 87804; 93005; 94640; 94760; 96361; 96365; 96374; 96375; 97110; 97112; 97116; 97161; 97530; 99285; J0456; J1650; J1815; J1940; J2405; J2920; J2930; J7030; J7050; J7512

== ENCOUNTER 2020-11-28 06:53 | Inpatient (IN) | payer OTHER ==
[2020-11-28 08:35] LABS: Absolute Lymphocytes (CBC) 0.8 K/uL (0.7-4.9); Basophils % 0.2 % (0-1.3); Hematocrit 41.4 % (36.0-45.0); Lymphocytes % 4.2 % (15.3-44.8)
[2020-11-28 08:57] LABS: ALT/SGPT 42 U/L (12-78); AST/SGOT 28 U/L (15-37); Albumin 2.6 g/dL (3.4-5.0); Alkaline Phosphatase 60 U/L (45-117); BUN Blood Urea Nitrogen 17 mg/dL (7-18); Bicarbonate 22 mmol/L (21-32); Bilirubin Direct 0.2 mg/dL (0-0.2); Ferritin 256.9 ng/mL (8-388); Glucose Level 239 mg/dL (74-106); Lipase 143 U/L (73-393); Potassium 4.3 mmol/L (3.5-5.1); Protein, Total 6.5 g/dL (6.4-8.2); Sodium Level 131 mmol/L (136-145); Troponin (Emerg Dept Use Only) < 0.02 ng/mL (0.0-0.045)
[2020-11-28 09:08] LABS: Blood Morphology Comment NOT SEEN (NOT SEEN); Platelet Estimate ADEQ; White Blood Cell Scan OK (OK)
--- NOTE | 2020-11-28 09:12 | RAD REPORT ---
EXAM DESCRIPTION: RAD - Chest Single View - 11/28/2020 8:11 am CLINICAL HISTORY: CONGESTION Chest pain. COMPARISON: Chest Single View dated 11/25/2020; Chest Single View dated 11/22/2020; Chest Single View dated 11/19/2020 FINDINGS: Portable technique limits examination quality. Moderate bilateral pulmonary opacities are noted, moderately worse than on 11/25/2020. This is compat ible with viral infection. The heart is normal in size. Left clavicular hardware plate is noted. IMPRESSION: Moderate worsening in lung aeration is seen since comparative study.
[2020-11-28] MEDS ORDERED: ONDANSETRON 4 MG/2 ML VIAL ONE (09:20)
[2020-11-28] MEDS ORDERED: METHYLPREDNISOLONE 125 MG INJ ONE (09:20)
[2020-11-28] MEDS ORDERED: NA CHLORIDE 0.9% 1,000 ML ONE (09:20)
[2020-11-28] MEDS ORDERED: AZITHROMYCIN IV 500 MG in NA CHLORIDE 0.9% 250 ML IVPB ONE (09:30)
--- NOTE | 2020-11-28 10:14 | ER ---
Nurse's Notes [facility] Name: Glenis Clark Age: 75 yrs Sex: Female : 1945 Arrival Date: 11/28/2020 Time: 06:55 Bed 16 Private MD: Srinivasa Reyes C Diagnosis: Coronavirus infection, unspecified;Hypoxemia;Pneumonia due to other specified infectious organisms Presentation: 11/28 07:05 Chief complaint: Pt's daughter states "she was just released home with COVID-19 aa5 Pneumonia on 4 L NC oxygen and she's just so weak, she just drinks water but doesn't want to eat, and her oxygen goes down to 60% when she walks to the restroom". 07:05 Coronavirus screen: Client reports previous positive COVID test result. Ebola Screen: aa5 Patient negative for fever greater than or equal to 101.5 degrees Fahrenheit, and additional compatible Ebola Virus Disease symptoms. Initial Sepsis Screen: Does the patient meet any 2 criteria? RR > 20 per min. Does the patient have a suspected source of infection? Yes:. Risk Assessment: Do you want to hurt yourself or someone else? Patient reports no desire to harm self or others. Onset of symptoms was November 2020. 07:05 Acuity: LAURY 2 aa5 07:05 Method Of Arrival: Wheelchair aa5 Historical: - Allergies: 07:29 No Known Allergies; aa5 - PMHx: 07:28 Diabetes - NIDDM; High Cholesterol; Hypertension; aa5 - PSHx: 09:10 None; iw - Immunization history:: Adult Immunizations not up to date, Pneumococcal vaccine is not up to date, Flu vaccine is not up to date. - Social history:: Patient/guardian denies using alcohol, street drugs, The patient lives with family, Smoking status: Patient denies any tobacco usage or history of. Screenin:09 Abuse screen: Denies threats or abuse. Denies injuries from another. Nutritional iw screening: No deficits noted. Tuberculosis screening: No symptoms or risk factors identified. Fall Risk IV access (20 points). Assessment: 07:45 General: Appears comfortable, Behavior is cooperative. General: Reports chills for iw feeling ill for > 3 days, fatigue for >3 days. Pain: Complains of pain in all over body aches. Neuro: Level of Consciousness is awake, alert, obeys commands, Oriented to person, place, time, situation, Moves all extremities. Cardiovascular: Patient's skin is warm and dry. Respiratory: Reports shortness of breath at rest on exertion cough that is Respiratory effort is even, unlabored, Respiratory pattern is regular, symmetrical. GI: Abdomen is non-distended. Derm: Skin is intact, is fragile. Musculoskeletal: Range of motion: intact in all extremities. 09:08 Reassessment: lab at bedside to draw blood cultures and lactate. iw 10:00 Reassessment: Patient appears in no apparent distress at this time. No changes from ca1 previously documented assessment. Patient and/or family updated on plan of care and expected duration. Pain level reassessed. 11:00 Reassessment: Patient appears in no apparent distress at this time. No changes from ca1 previously documented assessment. Patient and/or family updated on plan of care and expected duration. Pain level reassessed. 11:49 Reassessment: Patient appears in no apparent distress at this time. No changes from ca1 previously documented assessment. Patient and/or family updated on plan of care and expected duration. Pain level reassessed. 12:39 Reassessment: Patient appears in no apparent distress at this time. No changes from ca1 previously documented assessment. Patient and/or family updated on plan of care and expected duration. Pain level reassessed. Vital Signs: 07:05 BP 120 / 74; Pulse 84; Resp 26 S; Temp 98.1(O); Pulse Ox 88% on 6 lpm NC; aa5 07:25 Pulse Ox 95% on 5 lpm NC; aa5 09:49 BP 130 / 75; Pulse 99; Resp 24 S; Pulse Ox 89% on 4 lpm NC; iw 10:00 BP 125 / 55; Pulse 99; Resp 22; Pulse Ox 88% on 4 lpm NC; ca1 11:00 BP 112 / 55; Pulse 99; Resp 14 S; Pulse Ox 92% on 4 lpm NC; ca1 12:00 BP 128 / 64; Pulse 104; Resp 18 S; Pulse Ox 87% on 4 lpm NC; ca1 13:00 BP 115 / 55; Pulse 106; Resp 20 S; Pulse Ox 93% on 4 lpm NC; ca1 07:05 Pt's daughter states "we increased her oxygen to 6L" aa5 07:25 Pt now more calm, in bed. aa5 ED Course: 06:55 Patient arrived in ED. am2 06:55 Srinivasa Reyes MD is Private Physician. am2 07:11 Arm band placed on. aa5 07:11 Patient placed in an exam room, on a stretcher. aa5 07:18 Asia Funez MD is Attending Physician. ma2 07:22 Karma Tejeda, RN is Primary Nurse. iw 07:28 Triage completed. aa5 08:00 Inserted saline lock: 24 gauge in right upper arm, using aseptic technique. Blood iw collected. 10:00 Patient has correct armband on for positive identification. Placed in gown. Bed in low ca1 position. Call light in reach. Side rails up X2. ekg monitor tech on. Pulse ox on. NIBP on. Warm blanket given. 10:13 Srinivasa Reyes MD is Hospitalizing Provider. ma2 11:49 Lab(s) recollected, by laboratory assistant, sent to lab. ca1 13:22 No provider procedures requiring assistance completed. Patient admitted, IV remains in ca1 place. Administered Medications: 09:30 Drug: MethylPrednisoLONE 125 mg Route: IVP; Site: right upper arm; iw 10:30 Follow up: Response: No adverse reaction ca1 09:50 Drug: AZITHromycin 500 mg Route: IVPB; Infused Over: 1 hrs; Site: right upper arm; iw 10:50 Follow up: Response: No adverse reaction; IV Status: Completed infusion; IV Intake: ca1 250ml 10:53 Drug: NS 0.9% 1000 ml Route: IV; Rate: 125 ml/hr; Site: right upper arm; ca1 11:52 Follow up: Response: No adverse reaction; IV Status: Infusion continued upon admission ca1 12:39 Not Given (pt not nauseated at this time): Zofran (Ondansetron) 4 mg IVP once; over 2 ca1 minutes Intake: 10:50 IV: 250ml; Total: 250ml. ca1 Outcome: 10:13 Decision to Hospitalize by Provider. ma2 13:23 Admitted to ER Hold. Please see [facility] for further documentation. ca1 13:23 Condition: stable 13:23 Instructed on the need for admit. 21:03 Patient left the ED. em Signatures: Yobani Abdul RN RN em Karma Tejeda RN RN Radha Camarena RN RN aa5 Yeni Wilson am2 Asia Funez MD MD ma2 Irene Panchal RN RN ca1 Corrections: (The following items were deleted from the chart) 07:28 07:05 BP 120 / 74; Pulse 84bpm; Resp 26bpm; Spontaneous; Pulse Ox 88% 6 lpm Nasal aa5 Cannula; Temp 98.1F Oral; aa5 12:40 11:49 BP 112 / 55; Pulse 104bpm; Resp 18bpm; Spontaneous; Pulse Ox 87% 4 lpm Nasal ca1 Cannula; ca1
--- NOTE | 2020-11-28 10:14 | EDPHYS ---
Physician Documentation [facility] Name: Glenis Clark Age: 75 yrs Sex: Female : 1945 Arrival Date: 11/28/2020 Time: 06:55 Bed 16 Private MD: Srinivasa Reyes C ED Physician Asia Funez HPI: 11/28 09:37 This 75 yrs old Female presents to ER via Wheelchair with complaints of ma2 General Weakness, low oxygen. 09:37 The patient has shortness of breath at rest. Associated signs and symptoms: Pertinent ma2 negatives: diaphoresis, hemoptysis, loss of consciousness, numbness in extremities. Severity of symptoms: At their worst the symptoms were moderate in the emergency department the symptoms are unchanged. The patient has experienced a previous episode. has covid . Historical: - Allergies: 07:29 No Known Allergies; aa5 - PMHx: 07:28 Diabetes - NIDDM; High Cholesterol; Hypertension; aa5 - PSHx: 09:10 None; iw - Immunization history:: Adult Immunizations not up to date, Pneumococcal vaccine is not up to date, Flu vaccine is not up to date. - Social history:: Patient/guardian denies using alcohol, street drugs, The patient lives with family, Smoking status: Patient denies any tobacco usage or history of. ROS: 09:37 Constitutional: Negative for fever, chills, and weight loss. ma2 09:37 All other systems are negative. Exam: 09:37 Constitutional: This is a well developed, well nourished patient who is awake, alert, ma2 and in no acute distress. Head/Face: Normocephalic, atraumatic. Eyes: Pupils equal round and reactive to light, extra-ocular motions intact. Lids and lashes normal. Conjunctiva and sclera are non-icteric and not injected. Cornea within normal limits. Periorbital areas with no swelling, redness, or edema. ENT: Nares patent. No nasal discharge, no septal abnormalities noted. Tympanic membranes are normal and external auditory canals are clear. Oropharynx with no redness, swelling, or masses, exudates, or evidence of obstruction, uvula midline. Mucous membranes moist. Neck: Trachea midline, no thyromegaly or masses palpated, and no cervical lymphadenopathy. Supple, full range of motion without nuchal rigidity, or vertebral point tenderness. No Meningismus. Chest/axilla: Normal chest wall appearance and motion. Nontender with no deformity. No lesions are appreciated. Cardiovascular: Regular rate and rhythm with a normal S1 and S2. No gallops, murmurs, or rubs. Normal PMI, no JVD. No pulse deficits. Respiratory: sats are 88 on ra, tachypnic, lungs have equal breath sounds bilaterally, clear to auscultation and percussion. No rales, rhonchi or wheezes noted. no retractions or nasal flaring. Abdomen/GI: Soft, non-tender, with normal bowel sounds. No distension or tympany. No guarding or rebound. No evidence of tenderness throughout. Back: No spinal tenderness. No costovertebral tenderness. Full range of motion. Skin: Warm, dry with normal turgor. Normal color with no rashes, no lesions, and no evidence of cellulitis. MS/ Extremity: Pulses equal, no cyanosis. Neurovascular intact. Full, normal range of motion. Neuro: Awake and alert, GCS 15, oriented to person, place, time, and situation. Cranial nerves II-XII grossly intact. Motor strength 5/5 in all extremities. Sensory grossly intact. Cerebellar exam normal. Normal gait. Vital Signs: 07:05 BP 120 / 74; Pulse 84; Resp 26 S; Temp 98.1(O); Pulse Ox 88% on 6 lpm NC; aa5 07:25 Pulse Ox 95% on 5 lpm NC; aa5 09:49 BP 130 / 75; Pulse 99; Resp 24 S; Pulse Ox 89% on 4 lpm NC; iw 10:00 BP 125 / 55; Pulse 99; Resp 22; Pulse Ox 88% on 4 lpm NC; ca1 11:00 BP 112 / 55; Pulse 99; Resp 14 S; Pulse Ox 92% on 4 lpm NC; ca1 12:00 BP 128 / 64; Pulse 104; Resp 18 S; Pulse Ox 87% on 4 lpm NC; ca1 13:00 BP 115 / 55; Pulse 106; Resp 20 S; Pulse Ox 93% on 4 lpm NC; ca1 07:05 Pt's daughter states "we increased her oxygen to 6L" aa5 07:25 Pt now more calm, in bed. aa5 MDM: 07:18 Patient medically screened. [email or web address] 09:37 Differential diagnosis: Anemia asthma, Bronchitis reactive airway disease. nh2 10:12 Data reviewed: vital signs, nurses notes. Counseling: I had a detailed discussion with [facility] the patient and/or guardian regarding: the historical points, exam findings, and any diagnostic results supporting the discharge/admit diagnosis, the presence of at least one elevated blood pressure reading (>120/80) during this emergency department visit, the need for further work-up and treatment in the hospital. 11/28 07:20 Order name: Blood Culture Adult (2) nh2 11/28 07:20 Order name: BMP [facility] 11/28 07:20 Order name: C-Reactive Protein [facility] 11/28 07:20 Order name: CBC with Diff [facility] 11/28 07:20 Order name: D-Dimer [facility] 11/28 07:20 Order name: Ferritin [facility] 11/28 07:20 Order name: Flu [facility] 11/28 07:20 Order name: Lactate [facility] 11/28 07:20 Order name: LFT's [facility] 11/28 07:20 Order name: Lipase [facility] 11/28 07:20 Order name: Procalcitonin [facility] 11/28 07:20 Order name: PT-INR [facility] 11/28 07:20 Order name: Ptt, Activated [facility] 11/28 07:20 Order name: Troponin (emerg Dept Use Only) [facility] 11/28 07:20 Order name: Urine Microscopic Only [facility] 11/28 08:37 Order name: CBC with Automated Diff; Complete Time: 09:47 EDMS 11/28 08:57 Order name: Basic Metabolic Panel; Complete Time: 09:47 EDMS 11/28 08:57 Order name: Liver (Hepatic) Function; Complete Time: 09:47 EDMS 11/28 08:57 Order name: Troponin (Emerg Dept Use Only); Complete Time: 09:47 EDMS 11/28 08:57 Order name: C-Reactive Protein; Complete Time: 09:47 EDMS 11/28 08:57 Order name: Lipase; Complete Time: 09:47 EDMS 11/28 08:57 Order name: Ferritin; Complete Time: 09:47 EDMS 11/28 09:09 Order name: CBC Smear Scan; Complete Time: 09:47 EDMS 11/28 09:47 Order name: Lactate; Complete Time: 09:47 [facility] 11/28 10:01 Order name: Procalcitonin [facility] 11/28 10:06 Order name: Urine Dipstick--Ancillary (enter results) 11/28 11:42 Order name: Urine Dipstick-Ancillary [facility] 11/28 11:43 Order name: Urine Microscopic Only [facility] 11/28 12:00 Order name: Protime (+INR) [facility] 11/28 12:00 Order name: PTT, Activated Partial Thromb [facility] 11/28 07:20 Order name: CXR XRAY [facility] 11/28 07:20 Order name: EKG; Complete Time: 07:22 [facility] 11/28 07:20 Order name: Cardiac monitoring; Complete Time: 11:17 [facility] 11/28 07:20 Order name: Droplet/Contact Precautions; Complete Time: 09:11 [facility] 11/28 07:20 Order name: EKG - Nurse/Tech; Complete Time: 11:17 [facility] 11/28 07:20 Order name: IV Start; Complete Time: 09:11 [facility] 11/28 07:20 Order name: Labs collected and sent; Complete Time: 09:11 [facility] 11/28 07:20 Order name: O2 Per Protocol; Complete Time: 09:11 [facility] 11/28 07:20 Order name: O2 Sat Monitoring; Complete Time: 09:11 [facility] 11/28 07:20 Order name: Urine Dipstick-Ancillary (obtain specimen); Complete Time: 09:51 [facility] 11/28 09:13 Order name: RAD; Complete Time: 09:47 [facility] 11/28 09:46 Order name: Labs - recollect needed: recollect coag tube; Complete Time: 11:02 11/28 12:01 Order name: D-Dimer [facility] 11/28 14:11 Order name: Troponin I [facility] 11/28 14:41 Order name: Lactate Sepsis 2 HR Follow-up [facility] 11/28 16:11 Order name: Urinalysis [facility] 11/28 16:36 Order name: Urine Microscopic Only [facility] 11/28 17:38 Order name: Troponin I [facility] Administered Medications: 09:30 Drug: MethylPrednisoLONE 125 mg Route: IVP; Site: right upper arm; iw 10:30 Follow up: Response: No adverse reaction ca1 09:50 Drug: AZITHromycin 500 mg Route: IVPB; Infused Over: 1 hrs; Site: right upper arm; iw 10:50 Follow up: Response: No adverse reaction; IV Status: Completed infusion; IV Intake: ca1 250ml 10:53 Drug: NS 0.9% 1000 ml Route: IV; Rate: 125 ml/hr; Site: right upper arm; ca1 11:52 Follow up: Response: No adverse reaction; IV Status: Infusion continued upon admission ca1 12:39 Not Given (pt not nauseated at this time): Zofran (Ondansetron) 4 mg IVP once; over 2 ca1 minutes Disposition: 11/28/20 10:13 Hospitalization ordered by Srinivasa Reyes for Inpatient Admission. Preliminary diagnosis are Coronavirus infection, unspecified, Hypoxemia, Pneumonia due to other specified infectious organisms. - Bed requested for Telemetry/MedSurg (Inpatient). - Status is Inpatient Admission. em - Condition is Stable. - Problem is new. - Symptoms are unchanged. Signatures: Dispatcher [employer] EDMS Aubree Catherine Edgar, RN RN Karma Tejeda RN RN Radha Camarena RN RN aa5 Oriana Zelaya RN RN tl1 Asia Funez MD MD ma2 Irene Panchal RN RN ca1 Corrections: (The following items were deleted from the chart) 09:05 07:20 Millan ordered. [facility] iw 12:24 10:13 Hospitalization Ordered by A Eric DUPREE for Inpatient Admission. Preliminary bd diagnosis is Coronavirus infection, unspecified; Hypoxemia; Pneumonia due to other specified infectious organisms. Bed requested for Telemetry/MedSurg (Inpatient). Status is Inpatient Admission. Condition is Stable. Problem is new. Symptoms are unchanged. [facility] 19:56 12:24 11/28/2020 10:13 Hospitalization Ordered by A Eric DUPREE for Inpatient Admission. tl1 Preliminary diagnosis is Coronavirus infection, unspecified; Hypoxemia; Pneumonia due to other specified infectious organisms. Bed requested for [facility]. Status is Inpatient Admission. Condition is Stable. Problem is new. Symptoms are unchanged. bd 21:03 19:56 11/28/2020 10:13 Hospitalization Ordered by A Eric DUPREE for Inpatient Admission. em Preliminary diagnosis is Coronavirus infection, unspecified; Hypoxemia; Pneumonia due to other specified infectious organisms. Bed requested for Telemetry/MedSurg (Inpatient). Status is Inpatient Admission. Condition is Stable. Problem is new. Symptoms are unchanged. tl1
[2020-11-28] MEDS ORDERED: ALBUTEROL 2.5 MG/3 ML NEB SOL NEB PRN ×2 (10:18→16:00)
[2020-11-28] MEDS ORDERED: IPRATROPIUM BROM 0.5MG/2.5ML NEB PRN ×2 (10:18→16:00)
[2020-11-28 10:53] LABS: Urine Blood NEGATIVE (NEG); Urine Glucose 2+ (NEG); Urine Protein 1+ (NEG)
[2020-11-28 10:56] LABS: Urine Bacteria LOADED /HPF (<20); Urine Mucus 1+ /HPF (NONE SEEN); Urine RBC <5 /HPF (NONE SEEN)
[2020-11-28 11:57] LABS: Protime INR 1.26
[2020-11-28] MEDS: Levofloxacin500mg IV 500 MG/100 ML BAG IV SCH (13:37)
[2020-11-28] MEDS ORDERED: Levofloxacin500mg IV 500 MG/100 ML BAG IV ONE (13:45)
[2020-11-28] MEDS: ONDANSETRON 4 MG/2 ML VIAL IV PRN ×2 (13:46→22:15)
[2020-11-28] MEDS ORDERED: INFLUENZA VACCINE (for 3y+) 0.5 ML DOSE IMVAC ONE (14:00)
[2020-11-28] MEDS ORDERED: PNEUMOCOCCAL VACCINE 0.5 ML IMVAC ONE (14:00)
[2020-11-28 15:39] VITALS: BMI 25.1
[2020-11-28 16:05] LABS: Urine Appearance CLEAR; Urine Bilirubin NEGATIVE (NEG); Urine Blood NEGATIVE (NEG)
[2020-11-28 16:18] LABS: Urine Color YELLOW; Urine Glucose 2+ (NEG)
[2020-11-28 16:19] LABS: Urine Protein NEGATIVE (NEG)
[2020-11-28 16:35] LABS: Urine Bacteria >50 /HPF (<20); Urine RBC <5 /HPF (NONE SEEN)
[2020-11-28 16:36] LABS: Urine Microscopic Reflex NO UMIC
[2020-11-28] MEDS: METHYLPREDNISOLONE 125 MG INJ IV SCH (20:31)
[2020-11-28] MEDS ORDERED: METHYLPREDNISOLONE 40 MG INJ ONE (20:47)
[2020-11-28] MEDS ORDERED: GLUCAGON 1 MG/VIAL IM PRN (22:36)
[2020-11-28] MEDS ORDERED: D50W 25 GM/50 ML SYRINGE IV PRN (22:36)
[2020-11-28] MEDS ORDERED: TEMAZEPAM 15 MG CAP PO PRN (22:37)
[2020-11-29] MEDS: METHYLPREDNISOLONE 125 MG INJ IV SCH ×3 (02:02→16:36)
[2020-11-29 03:43] LABS: Absolute Lymphocytes (CBC) 0.4 K/uL (0.7-4.9); Basophils % 0.3 % (0-1.3); Hematocrit 39.8 % (36.0-45.0); Lymphocytes % 3.1 % (15.3-44.8); MPV 8.2 fL (7.6-11.3); RBC Red Blood Cell Count 4.56 M/uL (3.86-4.86)
[2020-11-29 03:59] LABS: Potassium 4.5 mmol/L (3.5-5.1)
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
[2020-11-29] MEDS: INSULIN -REGULAR HUMAN 50 UNIT/0.5 ML ML SQ SCH ×4 (08:47→21:13)
[2020-11-29] MEDS: METFORMIN ER 500 MG TAB PO SCH ×2 (08:48→16:38)
[2020-11-29] MEDS: METOPROLOL TAR 25 MG TAB PO SCH ×2 (08:49→21:14)
[2020-11-29] MEDS: SERTRALINE HCL 50 MG TAB PO SCH (08:50)
[2020-11-29] MEDS: APIXABAN 5 MG TABLET PO SCH ×2 (08:50→21:13)
--- NOTE | 2020-11-29 12:19 | EKG ---
Test Date: 2020-11-28 Test Time: 11:10:59 Heavy Equipment Supervisor: ELMA MEASUREMENT RESULTS: Intervals: Rate: 102 DE: 124 QRSD: 88 QT: 336 QTc: 437 [place]: P: 29 DE: 124 QRS: 13 T: 7 INTERPRETIVE STATEMENTS: Sinus tachycardia Voltage criteria for left ventricular hypertrophy Inferior infarct, age undetermined Abnormal ECG Compared to ECG 11/19/2020 19:36:47 Left ventricular hypertrophy now present Myocardial infarct finding now present Sinus rhythm no longer present Electronically Signed On 11-29-20 12:15:37 [employer] HELPER by Wes Bender
[2020-11-29] MEDS: Levofloxacin500mg IV 500 MG/100 ML BAG IV SCH (12:26)
[2020-11-29 12:27] LABS: Urine Appearance CLEAR; Urine Bilirubin NEGATIVE (NEG); Urine Blood NEGATIVE (NEG); Urine Color YELLOW; Urine Glucose 3+ (NEG); Urine Protein NEGATIVE (NEG); Urine Specific Gravity >=1.030 (1.005-1.030); Urine pH 6.5 (5.0-7.0)
[2020-11-29 12:48] LABS: Urine Microscopic Reflex NO UMIC
[2020-11-29] MEDS ORDERED: D50W 25 GM/50 ML VIAL IV PRN (14:52)
[2020-11-29] MEDS: TEMAZEPAM 15 MG CAP PO SCH (21:13)
[2020-11-29] MEDS: ATORVASTATIN 40 MG TAB PO SCH (21:13)
[2020-11-30] MEDS: METHYLPREDNISOLONE 125 MG INJ IV SCH ×3 (01:10→16:34)
[2020-11-30 04:12] LABS: Ferritin 224.2 ng/mL (8-388)
--- NOTE | 2020-11-30 06:50 | PN ---
Date of Progress Note: 11/29/2020 Subjective: The patient was seen this evening for followup. She was evaluated via TeleVisit that in cluded audio and video component. She was lying in bed, on nasal cannula oxygen, not in distress. D enies any complaints. So, overall she looks better than last night when I saw her. She still gets s hort of breath with any activity in a row. On her oxygen she was maintaining adequate oxygenation ar ound 91% to 93%. When I evaluated her via TeleVisit this evening that included audio and video compo nent. Objective: Vital Signs: Reviewed. Laboratory Data: Reviewed. Impression: 1.Acute respiratory failure with hypoxia. 2.COVID-19 infection. 3.COVID-19 pneumonia. 4.Diabetes mellitus. 5.Hypertension. Plan: We will go ahead and continue current medications including oxygen supplementation, IV steroid s, and we will continue to follow with Dr. Guardado. Continue anticoagulation therapy as order and I will see her tomorrow for followup. HUBER/MODL Voice ID: [id number] Report ID: [id number]
--- NOTE | 2020-11-30 07:44 | RAD REPORT ---
EXAM DESCRIPTION: CAROL ANNBellejohn Single View11/30/2020 7:09 am CLINICAL HISTORY: Chest pain COMPARISON: November 28 FINDINGS: Overall no significant change in the moderate to marked bilateral pulmonary opacities. Hea rt is normal size IMPRESSION: No significant change in the bilateral pneumonia
[2020-11-30] MEDS: INSULIN -REGULAR HUMAN 50 UNIT/0.5 ML ML SQ SCH ×4 (08:34→21:00)
[2020-11-30] MEDS: APIXABAN 5 MG TABLET PO SCH ×2 (08:35→20:26)
[2020-11-30] MEDS: SERTRALINE HCL 50 MG TAB PO SCH (08:35)
[2020-11-30] MEDS: METOPROLOL TAR 25 MG TAB PO SCH ×2 (08:35→20:26)
[2020-11-30] MEDS: METFORMIN ER 500 MG TAB PO SCH ×2 (08:35→16:36)
[2020-11-30] MEDS: Levofloxacin500mg IV 500 MG/100 ML BAG IV SCH (11:24)
[2020-11-30] MEDS: TEMAZEPAM 15 MG CAP PO SCH (20:26)
[2020-11-30] MEDS: ATORVASTATIN 40 MG TAB PO SCH (20:26)
[2020-12-01] MEDS: METHYLPREDNISOLONE 125 MG INJ IV SCH ×3 (01:58→16:23)
[2020-12-01 04:42] LABS: Absolute Lymphocytes (CBC) 0.5 K/uL (0.7-4.9); Basophils % 0.1 % (0-1.3); Hematocrit 35.5 % (36.0-45.0); Lymphocytes % 3.2 % (15.3-44.8); MPV 8.3 fL (7.6-11.3); RBC Red Blood Cell Count 4.08 M/uL (3.86-4.86)
[2020-12-01 05:22] LABS: Albumin 2.2 g/dL (3.4-5.0); Bilirubin Total 0.6 mg/dL (0.2-1.0); C-Reactive Protein 12.2 mg/L (<3.00); Ferritin 217.6 ng/mL (8-388); Magnesium 2.3 mg/dL (1.8-2.4); Potassium 4.7 mmol/L (3.5-5.1); Protein, Total 5.6 g/dL (6.4-8.2)
[2020-12-01] MEDS: INSULIN -REGULAR HUMAN 50 UNIT/0.5 ML ML SQ SCH ×4 (08:11→21:24)
[2020-12-01] MEDS: SERTRALINE HCL 50 MG TAB PO SCH (08:12)
[2020-12-01] MEDS: METOPROLOL TAR 25 MG TAB PO SCH ×2 (08:12→21:23)
[2020-12-01] MEDS: METFORMIN ER 500 MG TAB PO SCH ×2 (08:12→16:23)
[2020-12-01] MEDS: APIXABAN 5 MG TABLET PO SCH ×2 (08:12→21:22)
--- NOTE | 2020-12-01 11:18 | PN ---
Date of Progress Note: 11/30/2020 Subjective: The patient was seen this morning for followup. No new complaints or problems reported by the patient. She was lying in bed, using her nasal cannula oxygen, not in distress. Objective: Vital signs: Reviewed. HEENT: Unremarkable. Lungs: Clear to auscultation. Heart: Sounds normal. Abdomen: Soft. Bowel sounds normal. No guarding, rigidity, tenderness, or distention. Extremities: No leg edema. Laboratory Data: Ferritin level 224. CRP 26. Fingerstick blood sugar readings reviewed. Impression: 1.COVID-19 infection. 2.COVID-19 pneumonia. 3.Acute respiratory failure with hypoxia. Plan: We will go ahead and continue current steroid and diabetes medications. Continue oxygen suppl ementation therapy and continue anticoagulation therapy. I will see her tomorrow for followup. The patient is not in any respiratory distress. Generalized weakness and fatigue feeling have remained u nchanged. HUBER/MODL Voice ID: [id number] Report ID: [id number]
[2020-12-01] MEDS: Levofloxacin500mg IV 500 MG/100 ML BAG IV SCH (11:24)
[2020-12-01] MEDS: ATORVASTATIN 40 MG TAB PO SCH (21:23)
[2020-12-01] MEDS: TEMAZEPAM 15 MG CAP PO SCH (21:25)
[2020-12-02] MEDS: METHYLPREDNISOLONE 125 MG INJ IV SCH ×3 (01:59→17:04)
[2020-12-02] MEDS: INSULIN -REGULAR HUMAN 50 UNIT/0.5 ML ML SQ SCH ×4 (08:13→21:31)
[2020-12-02] MEDS: METFORMIN ER 500 MG TAB PO SCH ×2 (08:14→17:04)
[2020-12-02] MEDS: METOPROLOL TAR 25 MG TAB PO SCH ×2 (08:14→21:30)
[2020-12-02] MEDS: SERTRALINE HCL 50 MG TAB PO SCH (08:15)
[2020-12-02] MEDS: APIXABAN 5 MG TABLET PO SCH ×2 (08:19→21:29)
[2020-12-02] MEDS ORDERED: GLUCAGON 1 MG/VIAL IM PRN (09:46)
[2020-12-02] MEDS ORDERED: D50W 25 GM/50 ML SYRINGE IV PRN (09:46)
[2020-12-02] MEDS ORDERED: INSULIN GLARGINE 100 UNITS/ML SQ ONE (10:00)
[2020-12-02] MEDS ORDERED: FUROSEMIDE 20 MG/ 2ML VIAL IV ONE (11:02)
--- NOTE | 2020-12-02 11:03 | P.PN ---
Subjective Date of Service: 12/02/20 Chief Complaint: Respiratory failure from augustin virus Patient was recently discharged came back again feeling very weak short of breath had progressed heating very weak complaining of some cough Review of Systems General: Weakness Respiratory: Shortness of Breath Physical Examination - Vital Signs Temperature: 96.8 F Blood Pressure: 137/65 Pulse: 74 Respirations: 22 Pulse Ox (%): 91 Assessment & Plan - Problems (Diagnosis) (1) Pneumonia due to 2019 novel coronavirus Current Visit: No Status: Acute Plan: Patient a experiencing respiratory failure from augustin virus he is currently require higher concentrations of oxygen labs reviewed blood sugar white count elevated blood pressure is stable chest x-ray shows bilateral pneumonia trial of Lasix
[2020-12-02] MEDS ORDERED: BISACODYL 10 MG RECTAL SUPP PR ONE (11:06)
[2020-12-02] MEDS: Levofloxacin500mg IV 500 MG/100 ML BAG IV SCH (11:53)
--- NOTE | 2020-12-02 12:54 | PN ---
Date of Progress Note: 12/02/2020 Subjective: The patient was seen for followup this morning. No new complaints reported. Has genera lized weakness and tiredness feeling. She is on nasal cannula oxygen maintaining adequate oxygenatio n. As I had advised her yesterday she is spending more time sitting upright and she will try to do t he same thing today in the bed as well as try to get out of the bed and sit at the bedside in the [facility]. We did talk about importance of oral intake and she will try her best to eat as much as she can to get proper nutrition. Objective: Vital Signs: Reviewed. HEENT: Unremarkable. Lungs: Clear to auscultation except minimum rales in lower lung field. Heart: Sounds normal. Abdomen: Soft. Bowel sounds normal. No guarding, rigidity, tenderness, distention. Extremities: No leg edema. Laboratory Data: No new labs today. Fingerstick blood sugar readings reviewed. Impression: 1.Diabetes mellitus. 2.COVID-19 infection. 3.COVID-19 pneumonia. 4.Acute respiratory failure with hypoxia. 5.Constipation. Plan: The patient has not had a bowel movement in few days. She does not have any abdominal pain, b ut we will go ahead give Dulcolax rectal suppository today. Continue Levaquin. Continue current tye roid, metformin and we will start her on Lantus insulin along with sliding scale insulin will be continued. Continue anticoagulation therapy which is Eliquis. I will see her tomorrow for followup. HUBER/MODL Voice ID: [id number] Report ID: [id number]
--- NOTE | 2020-12-02 13:04 | PN ---
Date of Progress Note: 12/01/2020 Subjective: The patient was seen for followup this morning. No new complaints or problems reported. Lying in bed, not in distress. Objective: Vital Signs: Reviewed. HEENT: Unremarkable. Lungs: Bilateral good equal air entry. Presence of some minimum rales noted in lower lung tabor, n ot in respiratory distress, on nasal cannula oxygen. Heart: Sounds normal. Abdomen: Soft. Bowel sounds normal. No guarding, rigidity, tenderness, or distention. Extremities: No leg edema. Impression: 1.COVID-19 infection. 2.COVID-19 pneumonia. 3.Acute respiratory failure with hypoxia. 4.Diabetes mellitus. Plan: We will continue current medication. Continue Levaquin for pneumonia and metformin and insuli n sliding scale for diabetes management. Continue IV steroid and oxygen supplement therapy. We will see her tomorrow. HUBER/MODL Voice ID: [id number] Report ID: [id number]
[2020-12-02] MEDS: INSULIN GLARGINE 100 UNITS/ML SQ SCH (21:29)
[2020-12-02] MEDS: ATORVASTATIN 40 MG TAB PO SCH (21:30)
[2020-12-02] MEDS: TEMAZEPAM 15 MG CAP PO SCH (21:32)
[2020-12-03] MEDS: METHYLPREDNISOLONE 125 MG INJ IV SCH ×3 (01:27→16:19)
[2020-12-03 04:45] LABS: Absolute Lymphocytes (CBC) 0.6 K/uL (0.7-4.9); Hematocrit 37.8 % (36.0-45.0); Lymphocytes % 3.6 % (15.3-44.8); MPV 8.3 fL (7.6-11.3); RBC Red Blood Cell Count 4.35 M/uL (3.86-4.86)
[2020-12-03 05:51] LABS: Albumin 2.3 g/dL (3.4-5.0); Bilirubin Total 0.8 mg/dL (0.2-1.0); C-Reactive Protein 3.98 mg/L (<3.00); Ferritin 240.7 ng/mL (8-388); Magnesium 2.3 mg/dL (1.8-2.4); Potassium 4.5 mmol/L (3.5-5.1); Protein, Total 5.8 g/dL (6.4-8.2)
[2020-12-03] MEDS: INSULIN -REGULAR HUMAN 50 UNIT/0.5 ML ML SQ SCH ×4 (07:30→21:11)
[2020-12-03] MEDS: METOPROLOL TAR 25 MG TAB PO SCH ×2 (07:59→21:09)
[2020-12-03] MEDS: APIXABAN 5 MG TABLET PO SCH ×2 (07:59→21:07)
[2020-12-03] MEDS: INSULIN GLARGINE 100 UNITS/ML SQ SCH ×2 (07:59→21:07)
[2020-12-03] MEDS: SERTRALINE HCL 50 MG TAB PO SCH (08:00)
[2020-12-03] MEDS: METFORMIN ER 500 MG TAB PO SCH ×2 (08:00→16:19)
--- NOTE | 2020-12-03 11:33 | RAD REPORT ---
EXAM DESCRIPTION: RAD - Chest Single View - 12/03/2020 9:31 am CLINICAL HISTORY: covid pneumonia Chest pain. COMPARISON: Chest Single View dated 11/30/2020; Chest Single View dated 11/28/2020; Chest Single View da flakita 11/25/2020; Chest Single View dated 11/22/2020 FINDINGS: Portable technique limits examination quality. Since 11/30/2020, mild improvement is seen in lung aeration. The heart is normal in size. Left clavic le hardware present. IMPRESSION: Mild improvement is seen in lung aeration since comparative study.
[2020-12-03] MEDS: Levofloxacin500mg IV 500 MG/100 ML BAG IV SCH (12:29)
--- NOTE | 2020-12-03 12:50 | PN ---
Date of Progress Note: 12/03/2020 Subjective: The patient was seen this morning for followup. No new complaints or problems reported by the patient. Lying in bed, not in distress. She is on oxygen around 7 L/minute nasal cannula, wh ich is better today than yesterday. Objective: Vital Signs: Reviewed. HEENT: Unremarkable. Lungs: Clear to auscultation. Heart: Sounds normal. Abdomen: Soft. Bowel sounds normal. No guarding, rigidity, tenderness, or distention. Extremities: No leg edema. Laboratory Data: White count 16, hemoglobin 12.8, platelets 331. Sodium 135, potassium 4.5, chlorid e 102, bicarb 24, BUN 34, creatinine 0.64, glucose 204, ferritin 240.7, CRP 3.9. Impression: 1.COVID-19 infection. 2.COVID-19 pneumonia. 3.Acute respiratory failure with hypoxia. 4.Diabetes mellitus. Plan: We will continue current Eliquis for anticoagulation therapy, continue current insulin which i s Lantus insulin 10 units at bedtime and 15 units in the morning along with sliding scale. Continue Levaquin, IV steroids, and chest x-ray will be done today. We will follow up on results. Details we re discussed with the patient. If her condition continues to improve over period of next few days, t here is a possibility that we might be able to discharge her to go home during later part of next week. HUBER/MODL Voice ID: [id number] Report ID: [id number]
[2020-12-03] MEDS: ATORVASTATIN 40 MG TAB PO SCH (21:09)
[2020-12-03] MEDS: TEMAZEPAM 15 MG CAP PO SCH (21:12)
[2020-12-04] MEDS: METHYLPREDNISOLONE 125 MG INJ IV SCH ×3 (00:59→16:06)
[2020-12-04] MEDS: INSULIN -REGULAR HUMAN 50 UNIT/0.5 ML ML SQ SCH ×4 (08:00→21:37)
[2020-12-04] MEDS: METFORMIN ER 500 MG TAB PO SCH ×2 (08:38→16:40)
[2020-12-04] MEDS: METOPROLOL TAR 25 MG TAB PO SCH ×2 (08:38→21:36)
[2020-12-04] MEDS: SERTRALINE HCL 50 MG TAB PO SCH (08:38)
[2020-12-04] MEDS: APIXABAN 5 MG TABLET PO SCH ×2 (08:39→21:36)
[2020-12-04] MEDS: INSULIN GLARGINE 100 UNITS/ML SQ SCH ×2 (08:40→21:33)
[2020-12-04] MEDS: Levofloxacin500mg IV 500 MG/100 ML BAG IV SCH (10:00)
[2020-12-04] MEDS: ATORVASTATIN 40 MG TAB PO SCH (21:32)
[2020-12-04] MEDS: TEMAZEPAM 15 MG CAP PO SCH (21:38)
[2020-12-05] MEDS: METHYLPREDNISOLONE 125 MG INJ IV SCH ×3 (00:15→16:37)
[2020-12-05 04:01] LABS: Absolute Lymphocytes (CBC) 0.6 K/uL (0.7-4.9); Basophils % 0.3 % (0-1.3); Lymphocytes % 3.5 % (15.3-44.8); MPV 8.4 fL (7.6-11.3); RBC Red Blood Cell Count 4.56 M/uL (3.86-4.86)
[2020-12-05 04:34] LABS: BUN Blood Urea Nitrogen 24 mg/dL (7-18); Bicarbonate 27 mmol/L (21-32); Ferritin 277.6 ng/mL (8-388); Glucose Level 178 mg/dL (74-106); Magnesium 2.2 mg/dL (1.8-2.4); Potassium 4.6 mmol/L (3.5-5.1); Sodium Level 136 mmol/L (136-145)
[2020-12-05 05:09] LABS: Blood Morphology Comment NOT SEEN (NOT SEEN); Platelet Estimate ADEQ
--- NOTE | 2020-12-05 07:44 | RAD REPORT ---
EXAM DESCRIPTION: Charan Single View12/05/2020 5:34 am CLINICAL HISTORY: Chest pain COMPARISON: December 03 FINDINGS: No significant change in the diffuse bilateral pulmonary opacities likely pneumonia. Heart is normal size
--- NOTE | 2020-12-05 07:57 | PN ---
Date of Progress Note: 12/04/2020 Subjective: The patient was seen for followup this morning. No new complaints or problems reported by the patient. She was lying in bed, not in any distress. Objective: Vital Signs: Reviewed. HEENT: Unremarkable. Lungs: Clear to auscultation. Heart: Sounds normal. Abdomen: Soft. Bowel sounds normal. No guarding, rigidity, tenderness, or distention. Extremities: No leg edema. Impression: 1.COVID-19 infection. 2.COVID-19 pneumonia. 3.Acute respiratory failure with hypoxia. 4.Diabetes mellitus. Plan: The patient appearing better and stronger today than yesterday. She is using less oxygen per nasal cannula now at 5 L/minute compared to yesterday it was 7 L/minute. She is maintaining adequate oxygenation. We will continue current medications. Continue current steroid and I will see her johnathon gary for followup. HUBER/MODL Voice ID: [id number] Report ID: [id number]
[2020-12-05] MEDS ORDERED: INSULIN GLARGINE 100 UNITS/ML SQ SCH (08:00)
[2020-12-05] MEDS: METFORMIN ER 500 MG TAB PO SCH ×2 (08:49→16:35)
[2020-12-05] MEDS: APIXABAN 5 MG TABLET PO SCH ×2 (08:50→20:46)
[2020-12-05] MEDS: SERTRALINE HCL 50 MG TAB PO SCH (08:51)
[2020-12-05] MEDS: METOPROLOL TAR 25 MG TAB PO SCH ×2 (08:51→20:54)
[2020-12-05] MEDS: INSULIN -REGULAR HUMAN 50 UNIT/0.5 ML ML SQ SCH ×4 (08:55→20:52)
[2020-12-05] MEDS: Levofloxacin500mg IV 500 MG/100 ML BAG IV SCH (10:00)
[2020-12-05] MEDS: ATORVASTATIN 40 MG TAB PO SCH (20:46)
[2020-12-05] MEDS: TEMAZEPAM 15 MG CAP PO SCH (20:46)
[2020-12-06] MEDS: METHYLPREDNISOLONE 125 MG INJ IV SCH ×3 (01:48→17:37)
[2020-12-06] MEDS: METOPROLOL TAR 25 MG TAB PO SCH ×2 (08:34→20:25)
[2020-12-06] MEDS: APIXABAN 5 MG TABLET PO SCH ×2 (08:34→20:24)
[2020-12-06] MEDS: METFORMIN ER 500 MG TAB PO SCH ×2 (08:34→17:37)
[2020-12-06] MEDS: INSULIN -REGULAR HUMAN 50 UNIT/0.5 ML ML SQ SCH ×4 (08:35→20:25)
[2020-12-06] MEDS: SERTRALINE HCL 50 MG TAB PO SCH (08:35)
[2020-12-06] MEDS: INSULIN GLARGINE 100 UNITS/ML SQ SCH (08:37)
--- NOTE | 2020-12-06 09:24 | PN ---
Date of Progress Note: 12/05/2020 Subjective: The patient was seen this morning for followup. No new complaints or problems reported by patient. Lying in bed, not in any distress. Reports that she did spend quite a bit time sitting in the chair and overall feels better. She is on nasal cannula oxygen 5 L/minute, maintaining adequa te oxygenation. Objective: Vital Signs: Reviewed. HEENT: Unremarkable. Lungs: Clear to auscultation. Heart: Sounds normal. Abdomen: Soft. Bowel sounds normal. No guarding, rigidity, tenderness, or distention. Extremities: No leg edema. Impression: 1.COVID-19 infection. 2.COVID-19 pneumonia. 3.Acute respiratory failure with hypoxia. 4.Diabetes mellitus. Plan: The patient's fingerstick blood sugar readings reviewed yesterday. She had hypoglycemia in afternoon and her insulin dose was suspended. We will restart lower dose of Lantus insulin this mo rning at 10 units every morning. We will go ahead and continue sliding scale insulin. Continue curr ent Eliquis for anticoagulation therapy, IV steroid, antibiotic which is Levaquin. I will see her to [facility]age for followup. HUBER/MODL Voice ID: [id number] Report ID: [id number]
[2020-12-06] MEDS: Levofloxacin500mg IV 500 MG/100 ML BAG IV SCH (10:50)
[2020-12-06] MEDS: ATORVASTATIN 40 MG TAB PO SCH (20:25)
[2020-12-06] MEDS: TEMAZEPAM 15 MG CAP PO SCH (20:25)
[2020-12-07 03:55] LABS: Absolute Lymphocytes (CBC) 0.4 K/uL (0.7-4.9); Hematocrit 36.5 % (36.0-45.0); Lymphocytes % 3.7 % (15.3-44.8); MPV 8.5 fL (7.6-11.3); RBC Red Blood Cell Count 4.19 M/uL (3.86-4.86)
[2020-12-07 04:12] LABS: BUN Blood Urea Nitrogen 24 mg/dL (7-18); Bicarbonate 24 mmol/L (21-32); Ferritin 258.1 ng/mL (8-388); Glucose Level 206 mg/dL (74-106); Magnesium 2.1 mg/dL (1.8-2.4); Potassium 4.5 mmol/L (3.5-5.1); Sodium Level 137 mmol/L (136-145)
[2020-12-07 04:23] LABS: C-Reactive Protein < 2.90 mg/L (<3.00)
--- NOTE | 2020-12-07 08:10 | PN ---
Date of Progress Note: 12/06/2020 Subjective: The patient was seen for followup this morning. No new complaints or problems reported. Overall, she feels somewhat better. She is on nasal cannula oxygen at 5 L/minute. No new complain ts or problems reported. Objective: Vital Signs: Reviewed. HEENT: Unremarkable. Lungs: Clear to auscultation. Heart: Sounds normal. Abdomen: Soft. Bowel sounds normal. No guarding, rigidity, tenderness, or distention. Extremities: No leg edema. Impression: 1.Acute respiratory failure with hypoxia. 2.COVID-19 infection. 3.COVID-19 pneumonia. 4.Diabetes mellitus. Plan: We will go ahead and continue current insulin per order. We will increase dose of Lantus insu ainsley from 10 units to 15 units subcu injection daily in morning with breakfast. Fingerstick blood sug ar readings reviewed. We will continue current IV steroid, IV antibiotic, which is Levaquin. Contin ue metformin. The patient is on Eliquis 5 mg 2 times a day as anticoagulation therapy and we will co ntinue that. We will repeat chest x-ray and blood work tomorrow and I will see her tomorrow for chrissy nixon. HUBER/MODL Voice ID: [id number] Report ID: [id number]
[2020-12-07] MEDS: INSULIN -REGULAR HUMAN 50 UNIT/0.5 ML ML SQ SCH ×4 (08:19→20:49)
[2020-12-07] MEDS: METFORMIN ER 500 MG TAB PO SCH ×2 (08:20→16:41)
[2020-12-07] MEDS: INSULIN GLARGINE 100 UNITS/ML SQ SCH (08:20)
[2020-12-07] MEDS: SERTRALINE HCL 50 MG TAB PO SCH (08:20)
[2020-12-07] MEDS: METOPROLOL TAR 25 MG TAB PO SCH ×2 (08:21→20:49)
[2020-12-07] MEDS: METHYLPREDNISOLONE 125 MG INJ IV SCH ×4 (08:21→23:57)
[2020-12-07] MEDS: APIXABAN 5 MG TABLET PO SCH ×2 (08:21→20:48)
--- NOTE | 2020-12-07 09:03 | RAD REPORT ---
EXAM DESCRIPTION: RAD - Chest Single View - 12/07/2020 4:41 am CLINICAL HISTORY: covid pneumonia Chest pain. COMPARISON: Chest Single View dated 12/05/2020; Chest Single View dated 12/03/2020; Chest Single View da flakita 11/30/2020; Chest Single View dated 11/28/2020 FINDINGS: Portable technique limits examination quality. Bilateral pulmonary opacities are again seen, greater on the right, which have mildly worsened since the comparative study. The heart is normal in size. Left clavicular plate is present. IMPRESSION: Mild worsening in bibasilar lung opacities since comparative study.
[2020-12-07] MEDS: Levofloxacin500mg IV 500 MG/100 ML BAG IV SCH (12:06)
[2020-12-07] MEDS: ATORVASTATIN 40 MG TAB PO SCH (20:48)
[2020-12-07] MEDS: TEMAZEPAM 15 MG CAP PO SCH (20:49)
[2020-12-08] MEDS: INSULIN -REGULAR HUMAN 50 UNIT/0.5 ML ML SQ SCH ×4 (07:30→21:43)
--- NOTE | 2020-12-08 07:38 | PN ---
Date of Progress Note: 12/07/2020 Subjective: The patient was seen for followup this morning. No new complaints or problems by her lying in bed, not in distress, on nasal cannula oxygen 5 L/minute. Vital signs reviewed. She is spending more time in the chair as discussed with her. Objective: HEENT: Unremarkable. Lungs: Clear to auscultation. Heart: Sounds normal. Abdomen: Soft. Bowel sounds normal. No guarding, rigidity, tenderness, or distention. Extremities: No leg edema. Laboratory Data: White count 12, hemoglobin 12.7, platelets 229. Sodium 137, potassium 4.5, chloride 102, bicarb 24, BUN 24, creatinine 0.65, glucose 206, ferritin 258. CRP less than 2.9. Chest x-ray results reviewed. Impression: 1. COVID-19 infection. 2. COVID-19 pneumonia. 3. Acute respiratory failure with hypoxia. 4. Diabetes mellitus. Plan: We will go ahead and continue current steroid therapy. She is on Solu- Medrol 80 mg IV every 8 hours. We will continue that. Continue current antibiotic, which is Levaquin and anticoagulation therapy which is Eliquis. For diabetes, we will continue her insulin and metformin as she is currently taking. I will see her tomorrow for followup. HUBER/MODL Voice ID: [id number] Report ID: [id number] KATHE
[2020-12-08] MEDS: APIXABAN 5 MG TABLET PO SCH ×2 (07:57→21:45)
[2020-12-08] MEDS: METFORMIN ER 500 MG TAB PO SCH ×2 (07:57→16:15)
[2020-12-08] MEDS: METHYLPREDNISOLONE 125 MG INJ IV SCH ×2 (07:57→16:16)
[2020-12-08] MEDS: SERTRALINE HCL 50 MG TAB PO SCH (07:57)
[2020-12-08] MEDS: INSULIN GLARGINE 100 UNITS/ML SQ SCH (07:58)
[2020-12-08] MEDS: METOPROLOL TAR 25 MG TAB PO SCH ×2 (08:35→21:43)
[2020-12-08] MEDS: Levofloxacin500mg IV 500 MG/100 ML BAG IV SCH (10:00)
--- NOTE | 2020-12-08 13:01 | PN ---
Date of Progress Note: 12/08/2020 Subjective: The patient was seen this morning for followup. No new complaints or problems reported by the patient. Objective: Vital signs: Reviewed. HEENT: Unremarkable. Lungs: Clear to auscultation. Heart: Sounds normal. Abdomen: Soft. Bowel sounds normal. No guarding, rigidity, tenderness, or distention. Extremities: No leg edema. Impression: 1.COVID-19 infection. 2.COVID-19 pneumonia. 3.Acute respiratory failure with hypoxia. 4.Type 2 diabetes mellitus. Plan: We will go ahead and continue current oxygen replacement therapy. She is at 5 L nasal cannula oxygen. We will continue current IV steroid. Continue current insulin and metformin for diabetes m anagement and continue Levaquin. I will see her tomorrow for followup. The patient remains on Eliqu is for anticoagulation therapy. HUBER/MODL Voice ID: [id number] Report ID: [id number]
--- NOTE | 2020-12-08 16:22 | P.PN ---
Subjective Date of Service: 12/08/20 Chief Complaint: Respiratory failure from augustin virus Patient is improving still feeling very weak oxygenation satisfactory on nasal cannula oxygen Review of Systems General: Weakness Respiratory: Shortness of Breath Physical Examination - Vital Signs Temperature: 97.7 F Blood Pressure: 116/73 Pulse: 83 Respirations: 17 Pulse Ox (%): 96 Assessment & Plan - Problems (Diagnosis) (1) Pneumonia due to 2019 novel coronavirus Current Visit: No Status: Acute Plan: Patient is clinically improving she is stable on nasal cannula oxygen will decrease to 4 L saturation satisfactory stable for discharge E coli in your it is pansensitive can change to p.o. antibiotics chest x-ray consistent with augustin virus pneumonia reduce dose of Solu-Medrol change to p.o. amoxicillin
[2020-12-08] MEDS ORDERED: AMOXICILLIN 250 MG/5 ML OraL Susp PO SCH (21:00)
[2020-12-08] MEDS: METHYLPREDNISOLONE 40 MG INJ IV SCH (21:42)
[2020-12-08] MEDS: ATORVASTATIN 40 MG TAB PO SCH (21:42)
[2020-12-08] MEDS: AMOXICILLIN TRIHYDR 250 MG CAP PO SCH (21:42)
[2020-12-08] MEDS: TEMAZEPAM 15 MG CAP PO SCH (21:42)
[2020-12-09] MEDS: INSULIN -REGULAR HUMAN 50 UNIT/0.5 ML ML SQ SCH ×4 (07:30→21:00)
[2020-12-09] MEDS: METHYLPREDNISOLONE 40 MG INJ IV SCH ×2 (08:28→21:17)
[2020-12-09] MEDS: METFORMIN ER 500 MG TAB PO SCH ×2 (08:28→16:52)
[2020-12-09] MEDS: SERTRALINE HCL 50 MG TAB PO SCH (08:28)
[2020-12-09] MEDS: METOPROLOL TAR 25 MG TAB PO SCH ×2 (08:28→21:17)
[2020-12-09] MEDS: APIXABAN 5 MG TABLET PO SCH ×2 (08:29→21:17)
[2020-12-09] MEDS: INSULIN GLARGINE 100 UNITS/ML SQ SCH (08:29)
[2020-12-09] MEDS: AMOXICILLIN TRIHYDR 250 MG CAP PO SCH ×2 (09:49→21:16)
[2020-12-09] MEDS: ATORVASTATIN 40 MG TAB PO SCH (21:16)
[2020-12-09] MEDS: TEMAZEPAM 15 MG CAP PO SCH (21:16)
--- NOTE | 2020-12-09 21:29 | PN ---
Date of Progress Note: 12/09/2020 Subjective: The patient was seen today for followup. No new complaints or problems reported by her. She reports that she feels better today than yesterday. Objective: Vital Signs: Reviewed. When I saw her, she was on 2.5 L nasal cannula oxygen. HEENT: Unremarkable. Lungs: Clear to auscultation. Heart: Sounds normal. Abdomen: Soft. Bowel sounds normal. No guarding, rigidity, tenderness, or distention. Extremities: No leg edema. Impression: 1.COVID-19 infection. 2.COVID-19 pneumonia. 3.Acute respiratory failure with hypoxia. 4.Diabetes mellitus. Plan: We will go ahead and continue current medications. Consult physical therapy. The patient rem ains on Eliquis for anticoagulation therapy. We will continue that. Continue metformin and insulin per order. We will continue current Solu-Medrol, which is 40 mg every 12 hours. We will get a chest x-ray and blood work done per order. I will see her tomorrow for followup. Depending on her condit ion over next day or 2 days and her test results, we will plan to possibly consider discharge on , which is day after tomorrow. HUBER/MODL Voice ID: [id number] Report ID: [id number]
[2020-12-10 06:47] LABS: Absolute Lymphocytes (CBC) 0.6 K/uL (0.7-4.9); Basophils % 0.5 % (0-1.3); Hematocrit 37.6 % (36.0-45.0); Lymphocytes % 5.5 % (15.3-44.8); MPV 8.7 fL (7.6-11.3); RBC Red Blood Cell Count 4.31 M/uL (3.86-4.86)
[2020-12-10 06:54] LABS: BUN Blood Urea Nitrogen 18 mg/dL (7-18); Bicarbonate 26 mmol/L (21-32); Ferritin 246.9 ng/mL (8-388); Glucose Level 231 mg/dL (74-106); Potassium 4.2 mmol/L (3.5-5.1); Sodium Level 137 mmol/L (136-145)
[2020-12-10 06:58] LABS: C-Reactive Protein < 2.90 mg/L (<3.00)
[2020-12-10] MEDS: INSULIN -REGULAR HUMAN 50 UNIT/0.5 ML ML SQ SCH ×4 (07:30→20:48)
[2020-12-10] MEDS: METFORMIN ER 500 MG TAB PO SCH ×2 (08:41→17:56)
[2020-12-10] MEDS: METHYLPREDNISOLONE 40 MG INJ IV SCH ×2 (08:42→20:25)
[2020-12-10] MEDS: SERTRALINE HCL 50 MG TAB PO SCH (08:42)
[2020-12-10] MEDS: METOPROLOL TAR 25 MG TAB PO SCH ×2 (08:42→20:26)
[2020-12-10] MEDS: APIXABAN 5 MG TABLET PO SCH ×2 (08:42→20:25)
[2020-12-10] MEDS: INSULIN GLARGINE 100 UNITS/ML SQ SCH (08:42)
[2020-12-10 09:09] LABS: Blood Morphology Comment NOT SEEN (NOT SEEN); Platelet Estimate ADEQ
[2020-12-10] MEDS: AMOXICILLIN TRIHYDR 250 MG CAP PO SCH ×2 (10:00→20:25)
--- NOTE | 2020-12-10 10:44 | RAD REPORT ---
EXAM DESCRIPTION: Charan Single View12/10/2020 6:56 am CLINICAL HISTORY: Chest pain COMPARISON: December 07 FINDINGS: Mild improvement in the bilateral pulmonary opacities likely pneumonia Heart is mildly enlarged
--- NOTE | 2020-12-10 12:25 | PN ---
Date of Progress Note: 12/10/2020 Subjective: The patient was seen this morning for followup. No new complaints or problems reported by the patient. Lying in bed, not in distress. She feels little better today than yesterday. Objective: Vital Signs: Reviewed. HEENT: Unremarkable. Lungs: Clear to auscultation. Heart: Sounds normal. Abdomen: Soft. Bowel sounds normal. No guarding, rigidity, tenderness, distention. Extremities: No leg edema. Laboratory Data: White count 10.7, hemoglobin 13.1, platelets 158. Sodium 137, potassium 4.2, chlor doretha 102, bicarb 26, BUN 18, creatinine 0.59, glucose 231. Ferritin 246, CRP less than 2.90. Impression: 1.COVID-19 infection. 2.COVID-19 pneumonia. 3.Acute respiratory failure with hypoxia. 4.Diabetes mellitus. Plan: We will continue current medications. Continue current insulin and the patient is on steroid, we will continue that. During nighttime, she was on oxygen 4 L/minute. This morning, she is on 2.5 L/minute. The patient gets short of breath with any activity including trying to get out of the bed and getting in the chair also causes her to have shortness of breath. She needs assistance with tho se activities as well. We will see how Physical Therapy helps her and over period of next few days i f we can get her stronger and improvement in oxygenation, then our plan is to discharge her to go [facility] with home oxygen. Originally, we were thinking about possibility of discharge tomorrow, which will not happen and the patient understands that. We will continue her current steroid, insulin, and Eliquis, and other current medi cations. HUBER/MODL Voice ID: [id number] Report ID: [id number]
[2020-12-10] MEDS: TEMAZEPAM 15 MG CAP PO SCH (20:25)
[2020-12-10] MEDS: ATORVASTATIN 40 MG TAB PO SCH (20:26)
[2020-12-11] MEDS: INSULIN -REGULAR HUMAN 50 UNIT/0.5 ML ML SQ SCH ×4 (07:30→20:11)
[2020-12-11] MEDS: APIXABAN 5 MG TABLET PO SCH ×2 (08:59→20:12)
[2020-12-11] MEDS: INSULIN GLARGINE 100 UNITS/ML SQ SCH (08:59)
[2020-12-11] MEDS: METFORMIN ER 500 MG TAB PO SCH ×2 (08:59→16:32)
[2020-12-11] MEDS: SERTRALINE HCL 50 MG TAB PO SCH (08:59)
[2020-12-11] MEDS: METOPROLOL TAR 25 MG TAB PO SCH ×2 (09:00→20:12)
[2020-12-11] MEDS: METHYLPREDNISOLONE 40 MG INJ IV SCH ×2 (09:02→20:14)
[2020-12-11] MEDS: AMOXICILLIN TRIHYDR 250 MG CAP PO SCH ×2 (10:02→20:12)
[2020-12-11] MEDS: ATORVASTATIN 40 MG TAB PO SCH (20:12)
[2020-12-11] MEDS: TEMAZEPAM 15 MG CAP PO SCH (20:14)
[2020-12-12 04:13] LABS: Absolute Lymphocytes (CBC) 0.8 K/uL (0.7-4.9); Basophils % 0.3 % (0-1.3); Hematocrit 37.4 % (36.0-45.0); Lymphocytes % 6.9 % (15.3-44.8); MPV 8.8 fL (7.6-11.3)
[2020-12-12 04:23] LABS: BUN Blood Urea Nitrogen 23 mg/dL (7-18); Bicarbonate 27 mmol/L (21-32); Glucose Level 167 mg/dL (74-106); Magnesium 1.8 mg/dL (1.8-2.4); Potassium 4.1 mmol/L (3.5-5.1); Sodium Level 136 mmol/L (136-145)
[2020-12-12] MEDS: INSULIN -REGULAR HUMAN 50 UNIT/0.5 ML ML SQ SCH ×4 (07:30→22:00)
[2020-12-12] MEDS: INSULIN GLARGINE 100 UNITS/ML SQ SCH (08:00)
[2020-12-12] MEDS: METFORMIN ER 500 MG TAB PO SCH ×2 (09:54→17:27)
[2020-12-12] MEDS: METHYLPREDNISOLONE 40 MG INJ IV SCH (09:54)
[2020-12-12] MEDS: SERTRALINE HCL 50 MG TAB PO SCH (09:55)
[2020-12-12] MEDS: AMOXICILLIN TRIHYDR 250 MG CAP PO SCH ×2 (09:55→21:59)
[2020-12-12] MEDS: METOPROLOL TAR 25 MG TAB PO SCH ×2 (09:55→21:59)
[2020-12-12] MEDS: APIXABAN 5 MG TABLET PO SCH ×2 (10:51→21:59)
[2020-12-12] MEDS: predniSONE 20 MG TAB PO SCH (21:59)
[2020-12-12] MEDS: ATORVASTATIN 40 MG TAB PO SCH (21:59)
[2020-12-12] MEDS: TEMAZEPAM 15 MG CAP PO SCH (22:00)
[2020-12-12] MEDS ORDERED: APIXABAN 5 MG TABLET ONE (22:10)
--- NOTE | 2020-12-12 22:43 | PN ---
Date of Progress Note: 12/11/2020 Subjective: The patient was evaluated today via TeleVisit that included audio component only. Becau se of technical difficulty, we were not able to get audio and video visit. The patient denies any ne w complaints today. Objective: Vital Signs: Reviewed. She is on nasal cannula 2 L/minute. Impression: 1.COVID-19 infection. 2.COVID-19 pneumonia. 3.Acute respiratory failure with hypoxia. Plan: We will go ahead and continue current medication. Continue current oxygen replacement therapy and current steroids, and I will see her tomorrow for followup. HUBER/MODL Voice ID: [id number] Report ID: [id number]
[2020-12-13] MEDS: INSULIN -REGULAR HUMAN 50 UNIT/0.5 ML ML SQ SCH ×2 (08:24→12:32)
[2020-12-13] MEDS: INSULIN GLARGINE 100 UNITS/ML SQ SCH (08:24)
[2020-12-13] MEDS: SERTRALINE HCL 50 MG TAB PO SCH (08:25)
[2020-12-13] MEDS: predniSONE 20 MG TAB PO SCH (08:25)
[2020-12-13] MEDS: METFORMIN ER 500 MG TAB PO SCH (08:25)
[2020-12-13] MEDS: AMOXICILLIN TRIHYDR 250 MG CAP PO SCH (08:26)
[2020-12-13] MEDS: METOPROLOL TAR 25 MG TAB PO SCH (08:28)
[2020-12-13] MEDS ORDERED: APIXABAN 2.5 MG TABLET PO SCH (09:00)
--- NOTE | 2020-12-13 10:49 | PN ---
Date of Progress Note: 12/12/2020 Subjective: The patient was seen this morning for followup. No new complaints or problems reported by the patient. Lying in bed, not in distress. She still has generalized weakness. She could not a mbulate with the physical therapy because of shortness of breath. She got out of the bed and was sta nding at the bedside as she said. She is on 2 L nasal cannula oxygen. Objective: Vital Signs: Reviewed. HEENT: Unremarkable. Lungs: Clear to auscultation. Heart: Sounds normal. Abdomen: Soft. Bowel sounds normal. No guarding, rigidity, tenderness, or distention. Extremities: No leg edema. Laboratory Data: White count 12.1, hemoglobin 12.8, platelets 142. Sodium 136, potassium 4.1, chlor doretha 103, bicarb 27, BUN 23, creatinine 0.37, glucose 167, magnesium 1.8. Impression: 1.COVID-19 infection. 2.COVID-19 pneumonia. 3.Acute respiratory failure with hypoxia. 4.Generalized weakness. 5.Diabetes mellitus. Plan: We will go ahead and continue current medications, continue current diabetes management with m etformin, insulin and we will continue current IV steroids. She is on Solu-Medrol 40 mg every 12 lexii rs. Physical Therapy to continue to work with her. The patient remains on Eliquis for anticoagulati on therapy. I will see her tomorrow for followup. She is on 2 L nasal cannula oxygen. I will see h er tomorrow for followup. She lives by herself and her bedroom and shower is up stair. We will need to find out about her living arrangements. Once she is able to ambulate safely, then we should be able to discharge her to go [facility]. Details were discussed with her. HBUER/MODL Voice ID: [id number] Report ID: [id number]
[2020-12-13 12:07] VITALS: BP 112/56; TEMP 96.8
[2020-12-13 12:27] VITALS: O2SAT 93
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
== END 2020-12-13 15:03 | disposition home health service (06) | DRG 177 ==
LOC: ER 06:53 → ERHOLD 10:15 → 4TH 20:33
PROVIDERS: ADMIT Internal Medicine; ATTEND Internal Medicine
DX: U07.1 COVID-19 (principal); J96.01 Acute respiratory failure with hypoxia; J12.82 Pneumonia due to coronavirus disease 2019; N39.0 Urinary tract infection, site not specified; E87.1 Hypo-osmolality and hyponatremia; I25.10 Atherosclerotic heart disease of native coronary artery without angina pectoris; E11.649 Type 2 diabetes mellitus with hypoglycemia without coma; E78.5 Hyperlipidemia, unspecified; G47.00 Insomnia, unspecified; K59.00 Constipation, unspecified; F32.9 Major depressive disorder, single episode, unspecified; I10 Essential (primary) hypertension; B96.20 Unspecified Escherichia coli [E. coli] as the cause of diseases classified elsewhere; Z79.84 Long term (current) use of oral hypoglycemic drugs; Z79.899 Other long term (current) drug therapy; Z79.52 Long term (current) use of systemic steroids; Z79.01 Long term (current) use of anticoagulants; Z95.5 Presence of coronary angioplasty implant and graft; Z90.710 Acquired absence of both cervix and uterus; Z60.2 Problems related to living alone
CPT/HCPCS: 36415; 71045; 80048; 80053; 80076; 81003; 81015; 82728; 82947; 83605; 83690; 83735; 83880; 84145; 84484; 85025; 85379; 85610; 85730; 86140; 87040; 87077; 87086; 87088; 87186; 87804; 93005; 94640; 94760; 96361; 96365; 96375; 97110; 97112; 97116; 97161; 97530; 99285; J0456; J1815; J1940; J2405; J2920; J2930; J7030; J7050; J7512

== ENCOUNTER 2022-05-19 13:02 | Inpatient (IN) | payer OTHER ==
[2022-05-19 13:37] VITALS: BMI 23.6
[2022-05-19] MEDS ORDERED: GLUCAGON 1 MG/VIAL IM PRN (13:40)
[2022-05-19] MEDS ORDERED: TEMAZEPAM 15 MG CAP PO PRN (13:45)
[2022-05-19] MEDS ORDERED: DEXTROSE 10%-WATER 500 ML IV BAG IV PRN (13:54)
[2022-05-19] MEDS ORDERED: PNEUMOCOCCAL VACCINE 0.5 ML IMVAC ONE (13:56)
[2022-05-19] MEDS ORDERED: AZITHROMYCIN IV 500 MG in NA CHLORIDE 0.9% 250 ML IVPB SCH (15:00)
[2022-05-19] MEDS ORDERED: CEFTRIAXONE 1,000 MG in NA CHLORIDE 0.9% 50 ML IVPB SCH ×2 (15:00→21:00)
[2022-05-19] MEDS: ENOXAPARIN 40 MG/0.4 ML SQ SCH (16:15)
[2022-05-19] MEDS: INSULIN -REGULAR HUMAN 50 UNIT/0.5 ML ML SQ SCH ×2 (16:30→21:03)
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
[2022-05-19] MEDS: ATORVASTATIN 40 MG TAB PO SCH (21:02)
[2022-05-19] MEDS: TRAZODONE 50 MG TABLET PO SCH (21:02)
[2022-05-19] MEDS: METOPROLOL TAR 25 MG TAB PO SCH (21:03)
[2022-05-19] MEDS: CEFTRIAXONE 1,000 MG in NA CHLORIDE 0.9% 50 ML IVPB SCH (21:04)
[2022-05-20 03:45] LABS: Absolute Lymphocytes (CBC) 1.5 K/uL (0.7-4.9); Hematocrit 33.2 % (36.0-45.0); Lymphocytes % 9.5 % (15.3-44.8); MCV 86.3 fL (80-100); MPV 7.8 fL (7.6-11.3); RBC Red Blood Cell Count 3.85 M/uL (3.86-4.86)
[2022-05-20 04:09] LABS: Albumin 2.8 g/dL (3.4-5.0); Bilirubin Total 0.4 mg/dL (0.2-1.0); Magnesium 2.3 mg/dL (1.8-2.4); Potassium 3.8 mmol/L (3.5-5.1); Protein, Total 6.7 g/dL (6.4-8.2); Thyroid Stimulating Hormone 0.521 uIU/mL (0.360-3.740)
[2022-05-20] MEDS ORDERED: POTASSIUM 25 MEQ EFFERV TAB PO ONE (07:00)
[2022-05-20] MEDS: INSULIN -REGULAR HUMAN 50 UNIT/0.5 ML ML SQ SCH ×4 (07:30→21:46)
--- NOTE | 2022-05-20 09:12 | RAD REPORT ---
EXAM DESCRIPTION: RAD - Chest Pa And Lat (2 Views) - 05/20/2022 8:57 am CLINICAL HISTORY: pneumonia COMPARISON: Portable chest 12/10/2020 TECHNIQUE: Frontal and lateral views of the chest were obtained. FINDINGS: The lungs are normal volume. Patient has a baseline of chronic interstitial lung disease. Focally more prominent interstitial stranding is present in each lung base. No dense consolidation is present. In the acute clinical setting, lung base findings are probably an acute interstitial pneumonia. Bibas ilar scarring from prior pneumonia is possible. Patient had significant lung disease in the November 2020 study. Trachea is midline. Heart size is normal and central vasculature is within normal limits. No pleural effusion or pneumothorax seen. No acute bony finding noted. No aortic abnormality. IMPRESSION: Increased bibasilar interstitial opacification superimposed on IV mild underlying chroni c interstitial lung pattern. In the acute clinical setting bibasilar interstitial pneumonia would be favored. Lung base findings are potentially asymmetric or prominent basilar fibrosis from prior infection.
[2022-05-20] MEDS: CEFTRIAXONE 1,000 MG in NA CHLORIDE 0.9% 50 ML IVPB SCH ×2 (10:10→21:46)
[2022-05-20] MEDS: METOPROLOL TAR 25 MG TAB PO SCH ×2 (10:11→21:47)
[2022-05-20] MEDS: CLOPIDOGREL 75 MG TABLET PO SCH (10:11)
[2022-05-20] MEDS: AZITHROMYCIN IV 500 MG in NA CHLORIDE 0.9% 250 ML IVPB SCH (10:11)
[2022-05-20] MEDS: SERTRALINE HCL 50 MG TAB PO SCH (10:12)
[2022-05-20] MEDS: ENOXAPARIN 40 MG/0.4 ML SQ SCH (17:23)
[2022-05-20] MEDS ORDERED: BENZONATATE 100 MG CAP PO PRN (19:31)
[2022-05-20] MEDS: ATORVASTATIN 40 MG TAB PO SCH (21:47)
[2022-05-20] MEDS: TRAZODONE 50 MG TABLET PO SCH (21:47)
--- NOTE | 2022-05-21 01:43 | PN ---
Date of Progress Note: 05/20/2022 Subjective: The patient was seen this morning for followup. No new complaints or problems reported by her except cough. Objective: Vital Signs: Reviewed. HEENT: Unremarkable. Lungs: Bilateral good equal air entry. Presence of some rales noted in both lung tabor, better tod ay than yesterday and not in respiratory distress. Heart: Sounds normal. Abdomen: Soft. Bowel sounds normal. No guarding, rigidity, tenderness, or distention. Extremities: No leg edema. Laboratory Data: White count 15.6, hemoglobin 11.4, platelets 232. Sodium 138, potassium 3.8, chlor doretha 107, bicarb 23, BUN 12, creatinine 0.73, glucose 204. Liver function tests unremarkable. TSH 0. 52. Impression: 1.Pneumonia. 2.Hypertension. 3.Diabetes mellitus. 4.Hyponatremia, resolved. Plan: We will go ahead and continue current antibiotics, which are ceftriaxone and azithromycin. Co ntinue current DVT prophylaxis. Diabetes management with insulin sliding scale. We will see her johnathon gary for followup. HUBER/MODL Voice ID: [id number] Report ID: [id number]
[2022-05-21] MEDS: INSULIN -REGULAR HUMAN 50 UNIT/0.5 ML ML SQ SCH ×4 (07:30→20:15)
--- NOTE | 2022-05-21 09:08 | RAD REPORT ---
EXAM DESCRIPTION: RAD - Chest Pa And Lat (2 Views) - 05/21/2022 8:20 am CLINICAL HISTORY: pneumonia Chest pain. COMPARISON: EXT VENOUS UNI LTD dated 02/07/2009Chest Pa And Lat (2 Views) dated 05/20/2022; Chest Sing le View dated 12/10/2020; Chest Single View dated 12/07/2020; Chest Single View dated 12/05/2020 FINDINGS: Moderate bibasilar lung opacities are present greater on left, most compatible with pneumo su. This appears mildly worsened since yesterday's study. The heart is normal in size. No displaced fractures. Left clavicular hardware. IMPRESSION: Mild worsening bibasilar lung opacities since comparative study.
[2022-05-21] MEDS: GUAIFENESIN/CODEINE 5ML UCUP PO SCH ×3 (09:28→20:08)
[2022-05-21] MEDS: AZITHROMYCIN IV 500 MG in NA CHLORIDE 0.9% 250 ML IVPB SCH (09:28)
[2022-05-21] MEDS: CEFTRIAXONE 1,000 MG in NA CHLORIDE 0.9% 50 ML IVPB SCH ×2 (09:28→20:10)
[2022-05-21] MEDS: CLOPIDOGREL 75 MG TABLET PO SCH (09:29)
[2022-05-21] MEDS: SERTRALINE HCL 50 MG TAB PO SCH (09:30)
[2022-05-21] MEDS: METOPROLOL TAR 25 MG TAB PO SCH ×2 (09:32→20:15)
[2022-05-21 16:38] VITALS: O2SAT 95
[2022-05-21] MEDS: ENOXAPARIN 40 MG/0.4 ML SQ SCH (17:04)
[2022-05-21] MEDS ORDERED: ACETAMINOPHEN 500 MG TAB PO PRN (19:22)
[2022-05-21] MEDS: TRAZODONE 50 MG TABLET PO SCH (20:09)
[2022-05-21] MEDS: ATORVASTATIN 40 MG TAB PO SCH (20:10)
[2022-05-22 06:14] LABS: Absolute Lymphocytes (CBC) 2.8 K/uL (0.7-4.9); Hematocrit 33.7 % (36.0-45.0); Lymphocytes % 26.1 % (15.3-44.8); MCV 85.4 fL (80-100); MPV 7.5 fL (7.6-11.3); RBC Red Blood Cell Count 3.94 M/uL (3.86-4.86)
[2022-05-22 06:32] LABS: Potassium 3.7 mmol/L (3.5-5.1)
[2022-05-22] MEDS: INSULIN -REGULAR HUMAN 50 UNIT/0.5 ML ML SQ SCH ×3 (07:30→16:30)
[2022-05-22] MEDS ORDERED: POTASSIUM CL SA 10 MEQ TAB PO ONE (08:00)
--- NOTE | 2022-05-22 08:18 | PN ---
Date of Progress Note: 05/21/2022 Subjective: The patient was seen this morning for followup. No new complaints or problems reported by the patient. Lying in bed, except reporting that her cough is not controlled with current cough m edicine, which is benzonatate and she did not sleep well last night because of the cough. Overall, s he feels better. Objective: Vital Signs: Reviewed. HEENT: Unremarkable. Lungs: Bilateral good equal air entry, not in respiratory distress. Scattered rales better than bef ore. Heart: Sounds normal. Abdomen: Soft. Bowel sounds normal. No guarding, rigidity, tenderness, or distention. Extremities: No leg edema. Laboratory Data: Sodium 140, potassium 4, chloride 111, bicarb 25, BUN 17, creatinine 0.89, glucose 113. Impression: 1.Pneumonia. 2.Type 2 diabetes mellitus. 3.Hypertension. Plan: We will go ahead and continue current antibiotics. We will start her on Robitussin AC which i s cough syrup with codeine 10 cc 3 times a day and still continue p.r.n. use of benzonatate. Ambulat ion was encouraged. Continue current diabetes management with sliding scale insulin. We will repeat chest x-ray tomorrow and blood work tomorrow morning. Ambulation was encouraged. HUBER/MODL Voice ID: [id number] Report ID: [id number]
[2022-05-22] MEDS: CLOPIDOGREL 75 MG TABLET PO SCH (09:34)
[2022-05-22] MEDS: GUAIFENESIN/CODEINE 5ML UCUP PO SCH ×2 (09:34→13:56)
[2022-05-22] MEDS: METOPROLOL TAR 25 MG TAB PO SCH (09:34)
--- NOTE | 2022-05-22 09:34 | RAD REPORT ---
EXAM DESCRIPTION: RAD - Chest Pa And Lat (2 Views) - 05/22/2022 9:28 am CLINICAL HISTORY: pneumonia COMPARISON: Two view chest 05/21/2022 TECHNIQUE: Frontal and lateral views of the chest were obtained. FINDINGS: The lungs are underinflated. Left greater than right bibasilar pneumonia findings are stil l present. There may be very fractional improvement on the right. Left base findings are stable. No p rogression seen. Chronic interstitial lung disease is present. No significant failure or volume overload findings. No hilar abnormality seen. Heart size is normal and central vasculature is within normal limits. No pleural effusion or pneumot horax seen. No acute bony finding noted. No aortic abnormality. IMPRESSION: Bibasilar pneumonia findings again noted. Left base is stable. There may be slight impro vement in the right base.
[2022-05-22] MEDS: CEFTRIAXONE 1,000 MG in NA CHLORIDE 0.9% 50 ML IVPB SCH (09:35)
[2022-05-22] MEDS: AZITHROMYCIN IV 500 MG in NA CHLORIDE 0.9% 250 ML IVPB SCH (09:35)
[2022-05-22] MEDS: SERTRALINE HCL 50 MG TAB PO SCH (09:35)
[2022-05-22] MEDS: ENOXAPARIN 40 MG/0.4 ML SQ SCH (16:57)
[2022-05-22 17:15] VITALS: BP 140/65; TEMP 97.6
--- NOTE | 2022-05-23 20:00 | DS ---
Date of Discharge: 05/22/2022 The patient was seen this morning for followup. No new complaints or problems reported. Physical Examination: Vital Signs: Reviewed. HEENT: Unremarkable. Lungs: Bilateral good equal air entry. Clear to auscultation except presence of some basal rales. Heart: Sounds normal. Abdomen: Soft. Bowel sounds normal. No guarding, rigidity, tenderness, distention. Extremities: No leg edema. Final Diagnoses: 1.Pneumonia. 2.Type 2 diabetes mellitus. 3.Hypertension. Discharge Medications And Instructions: 1.Continue all prior home medications. 2.Levaquin 500 mg daily for 1 week. 3.Follow up at my office next week. Hospital Course: This is a 77-year-old pleasant female patient, admitted to the hospital with pneumo su problem. Please see dictated H and P for more information. The patient went to initially at [facility] Emergency Room where she was evaluated, diagnosed as having pneumonia. Her venous Doppler of leg was negative for DVT. CT scan of the chest per PE protocol was negative for pulmonary embolism. The patient was admitted to our hospital and was started on ceftriaxone and azithromycin. Overall, her condition has improved. Initially, she was on oxygen. Subsequently, we were able to discontinue oxy gen and she maintained adequate oxygenation on room air. She started ambulating well. Her appetite has improved. Repeat chest x-ray shows improvement in pneumonia and overall her condition is stable for discharge. I will see her next week for followup. HUBER/MODL Voice ID: [id number] Report ID: [id number]
== END 2022-05-22 19:50 | disposition home or self-care (01) | DRG 194 ==
LOC: 2ND 13:02
PROVIDERS: ADMIT Internal Medicine; ATTEND Internal Medicine
DX: J18.9 Pneumonia, unspecified organism (principal); E87.1 Hypo-osmolality and hyponatremia; E11.9 Type 2 diabetes mellitus without complications; I10 Essential (primary) hypertension; I25.10 Atherosclerotic heart disease of native coronary artery without angina pectoris; E78.5 Hyperlipidemia, unspecified; R53.1 Weakness; R26.89 Other abnormalities of gait and mobility; G47.00 Insomnia, unspecified; M15.9 Polyosteoarthritis, unspecified; Z20.822 Contact with and (suspected) exposure to COVID-19; Z79.84 Long term (current) use of oral hypoglycemic drugs; Z79.899 Other long term (current) drug therapy; Z86.16 Personal history of COVID-19; Z95.5 Presence of coronary angioplasty implant and graft; Z90.710 Acquired absence of both cervix and uterus; Z82.49 Family history of ischemic heart disease and other diseases of the circulatory system; Z82.61 Family history of arthritis; Z82.5 Family history of asthma and other chronic lower respiratory diseases; Z80.1 Family history of malignant neoplasm of trachea, bronchus and lung
CPT/HCPCS: 36415; 71046; 80048; 80053; 82947; 83735; 84443; 85025; 87040; 87070; 87205; 97161; J0456; J1650; J1815; J7050

== ENCOUNTER 2023-01-15 10:31 | Inpatient (IN) | payer OTHER ==
[2023-01-15 11:05] LABS: SARS-CoV-2 Antigen Rapid Res Negative (Negative)
--- OUTSIDE RECORDS SUMMARY | 2023-01-15 11:29 | XMS REPORT | Continuity of Care Document ---
:1945 Author Organization [facility] t Address [address] [place] [address] [place] [id number] Care Team Providers Name Role Phone Unavailable Unavailable Unavailable Problems This patient has no known problems. Allergies, Adverse Reactions, Alerts This patient has no known allergies or adverse reactions. Medications This patient has no known medications. Procedures This patient has no known procedures. Results This patient has no known results.
[2023-01-15] MEDS ORDERED: GLUCAGON 1 MG/VIAL IM PRN (12:10)
[2023-01-15 12:15] VITALS: BMI 25.9
[2023-01-15] MEDS ORDERED: D10W 250 ML BAG IV PRN (12:19)
[2023-01-15 12:58] LABS: Absolute Lymphocytes (CBC) 3.1 K/uL (0.7-4.9); Hematocrit 41.8 % (36.0-45.0); Lymphocytes % 29.3 % (15.3-44.8); MCV 87.7 fL (80-100); MPV 8.4 fL (7.6-11.3); RBC Red Blood Cell Count 4.77 M/uL (3.86-4.86)
[2023-01-15] MEDS ORDERED: Meropenem 1,000 MG in NA CHLORIDE 0.9% 100 ML IV SCH (13:00)
[2023-01-15 13:08] LABS: Magnesium 2.2 mg/dL (1.6-2.4); Potassium 4.1 mEq/L (3.5-5.1)
[2023-01-15] MEDS: INSULIN -REGULAR HUMAN 50 UNIT/0.5 ML ML SQ SCH ×2 (15:57→21:00)
[2023-01-15] MEDS: METFORMIN 250 MG PO SCH (21:00)
[2023-01-15] MEDS ORDERED: TRAZODONE 50 MG TABLET PO SCH (21:00)
[2023-01-15] MEDS ORDERED: ATORVASTATIN 40 MG TAB PO SCH (21:00)
[2023-01-15] MEDS: METOPROLOL TAR 25 MG TAB PO SCH (21:06)
[2023-01-15] MEDS: Meropenem 1,000 MG in NA CHLORIDE 0.9% 100 ML IV SCH (21:07)
[2023-01-15] MEDS: MUPIROCIN 2% OINT 22GM TUBE TOP SCH (21:07)
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
[2023-01-16] MEDS: INSULIN -REGULAR HUMAN 50 UNIT/0.5 ML ML SQ SCH ×2 (07:30→11:30)
[2023-01-16] MEDS: METOPROLOL TAR 25 MG TAB PO SCH (08:49)
[2023-01-16] MEDS: Meropenem 1,000 MG in NA CHLORIDE 0.9% 100 ML IV SCH (08:49)
[2023-01-16] MEDS: METFORMIN 250 MG PO SCH (08:50)
[2023-01-16] MEDS: MUPIROCIN 2% OINT 22GM TUBE TOP SCH (08:50)
[2023-01-16] MEDS ORDERED: CLOPIDOGREL 75 MG TABLET PO SCH (09:00)
[2023-01-16 12:17] VITALS: BP 151/70; TEMP 97.6
--- NOTE | 2023-01-16 16:36 | RAD REPORT ---
EXAM DESCRIPTION: RAD - Chest Single View - 01/16/2023 3:20 am CLINICAL HISTORY: Picc placement TECHNIQUE: Frontal view of the chest. COMPARISON: Chest x-ray and CTA chest dated 05/19/2022 FINDINGS: Lungs: Coarsened interstitial markings and patchy and linear bibasilar opacities similar to the prior. 2 cm right lower lobe cavitary lesion similar to the prior. Pleural space: Unremarkable. No pneumothorax. Heart: Unremarkable. No cardiomegaly. Mediastinum: Unremarkable. Bones/joints: Prior left clavicular plate and screw fixation. Vasculature: Thoracic aortic atherosclerosis. Tubes, lines and devices: Right upper extremity PICC tip projects over the distal superior vena cav a. IMPRESSION: 1. Right upper extremity PICC tip projects over the distal superior vena cava. 2. Bibasilar opacities similar to the prior and thought in part related to chronic interstitial malaika nges. Superimposed infection not excluded. Electronically signed by: Michael Velasquez MD 01/16/2023 3:47 AM CDT Due to temporary technical issues with the PACS/Fluency reporting system, reports are being signed by the in house radiologists without review as a courtesy to insure prompt reporting. The interpreting radiologist is fully responsible for the content of the report.
--- NOTE | 2023-01-16 23:29 | DS ---
Date of Discharge: 01/16/2023 Disposition: Discharged to go home. Physical Examination: HEENT: Unremarkable. Lungs: Clear to auscultation. Heart: Sounds normal. Abdomen: Soft. Bowel sounds normal. No guarding, rigidity, tenderness, or distention. Extremities: No leg edema. Hospital Course: This is a 77-year-old pleasant female patient admitted to the hospital with urinary tract infection due to E coli, which was ESBL. Please see dictated H and P for more information. A fter the patient was admitted to the hospital, she was started on culture specific antibiotic, which was meropenem. PICC line was placed last night and Social Service was consulted and all the arrangem ents for the patient to receive home IV antibiotic was completed today along with Home Healthcare. T he patient was discharged to go home in stable condition with following discharge medications and ins tructions. Final Diagnoses: 1.Urinary tract infection, organism Escherichia coli, extended spectrum beta-lactamase. 2.Type 2 diabetes mellitus. 3.Hypertension. 4.Hyperlipidemia. 5.Coronary artery disease. 6.Insomnia. 7.Osteoarthritis, multiple sites. Discharge Medications And Instructions: 1.Continue all prior home medications. 2.The patient to take meropenem 1000 mg IV every 12 hours for 10 days. 3.Home Health nurse to assist the patient with PICC line flush per protocol, change PICC line ramandeep aquino per protocol. 4.Follow up at my office next week and we will order her blood work at office. HUBER/MODL Voice ID: [id number] Report ID: [id number]
== END 2023-01-16 14:14 | disposition home health service (06) | DRG 690 ==
LOC: 4TH 11:26
PROVIDERS: ADMIT Internal Medicine; ATTEND Internal Medicine
PROC: 02HV33Z Insertion of Infusion Device into Superior Vena Cava, Percutaneous Approach (ICD-10-PCS; principal; 2023-01-15)
DX: N39.0 Urinary tract infection, site not specified (principal); Z16.12 Extended spectrum beta lactamase (ESBL) resistance; B96.20 Unspecified Escherichia coli [E. coli] as the cause of diseases classified elsewhere; E11.9 Type 2 diabetes mellitus without complications; I10 Essential (primary) hypertension; E78.5 Hyperlipidemia, unspecified; G47.00 Insomnia, unspecified; M19.09 Primary osteoarthritis, other specified site; I25.10 Atherosclerotic heart disease of native coronary artery without angina pectoris; Z95.5 Presence of coronary angioplasty implant and graft; Z86.16 Personal history of COVID-19; Z90.710 Acquired absence of both cervix and uterus; Z20.822 Contact with and (suspected) exposure to COVID-19
CPT/HCPCS: 36415; 36569; 71045; 80048; 82947; 83735; 85025; 87811; J2185